=== PATIENT | male | born 1980 | race Caucasian/White ===

== ENCOUNTER → 2017-03-04 | Outpatient (CLI) | payer OTHER ==
[~2017-03-04] MED LIST: AMOX875T PO; CZR50 PO; LOSA1TAB PO; OXYC1TAB3 PO; RANI300C PO; TERB250T51 PO; [UNRECOGNIZED DRUG - CODE] MT
== END | disposition home or self-care (01) ==
LOC: C.PATHSPEC 17:43
PROVIDERS: ATTEND Plastic Surgery
DX: D22.61 Melanocytic nevi of right upper limb, including shoulder (principal)

== ENCOUNTER 2017-06-24 16:27 | Emergency (ER) | payer BC, OTHER ==
[~2017-06-24] VITALS: Ht 177.8 cm; Wt 112.7 kg
[~2017-06-24 16:27] MED LIST changes: -AMOX875T PO; -CZR50 PO; -OXYC1TAB3 PO; -RANI300C PO
[2017-06-24 16:29] VITALS: TEMP 36.7; Ht 177.8 cm; Wt 112.7 kg
[2017-06-24] MEDS ORDERED: SODIUM CHLORIDE 0.9% 1000ML 1,000 ML IV STA (16:40)
[2017-06-24] MEDS ORDERED: PROMETHAZINE HCL INJ 12.5 MG in SODIUM CHLORIDE 0.9% 50ML 50 ML IV STA (16:40)
[2017-06-24] MEDS ORDERED: MoRPHine SULFATE 4 MG/ML 1 ML CARP\\VIAL IV PRN (16:45)
[2017-06-24] MEDS ORDERED: CZR50 PO (16:55)
[2017-06-24] MEDS ORDERED: RANI300C PO (16:55)
[2017-06-24] MEDS ORDERED: OPTIRAY 320 IV PRN (17:00)
--- NOTE | 2017-06-24 17:10 | DIAGNOSTIC IMAGING REPORT ---
SINGLE VIEW CHEST CLINICAL HISTORY: Generalized abdominal pain. FINDINGS: An AP, portable, upright chest radiograph is compared to study dated 04/23/2012. The examination is degraded by portable technique and patient rotation. The heart is top normal for projection. The mediastinal contour is within normal limits. An accessory azygous fissure is incidentally noted. Linear atelectasis is seen in the left lower lung. The lungs and pleural spaces are otherwise clear. No pneumothorax is seen. The bony thorax is grossly intact. IMPRESSION: No acute cardiopulmonary abnormality. Electronically signed by: Alonzo Perez M.D. 06/24/2017 5:08 PM Dictated Date/Time: 06/24/2017 5:07 PM
[2017-06-24 17:17] LABS: BASO % 0.5 %; BASO ABS # 0.04 K/uL (0-0.2); COMPLETE YES; EOS % 2.4 %; HEMATOCRIT 39.9 % (42-52); IG% 0.4 %; LYMPH % 27.7 %; MEAN CELL VOLUME 89.3 fL (80-100); MEAN CORPUSCULAR HGB CONC 35.8 g/dl (32-36); MEAN PLATELET VOLUME 10.7 fL (7.4-10.4); MONO % 7.7 %; NEUT % 61.3 %; PLATELET COUNT 182 K/uL (130-400); RED BLOOD COUNT 4.47 M/uL (4.7-6.1); WHITE BLOOD COUNT 8.31 K/uL (4.8-10.8)
[2017-06-24 17:24] LABS: ISTAT HEMOGLOBIN 13.9 g/dl (14.0-18.0); ISTAT IONIZED CALCIUM 1.17 mmol/l (1.12-1.32)
[2017-06-24 17:35] LABS: INR 0.9 (0.9-1.1)
[2017-06-24 17:41] LABS: BUN/CREATININE RATIO 10.8 (10-20); CALCIUM 8.7 mg/dl (8.5-10.1); CREATININE 1.1 mg/dl (0.60-1.40)
[2017-06-24 17:45] LABS: POTASSIUM 3.7 mmol/L (3.5-5.1)
--- NOTE | 2017-06-24 17:48 | DIAGNOSTIC IMAGING REPORT ---
CT ANGIOGRAM OF THE BRAIN COMBO CLINICAL HISTORY: Headache. COMPARISON STUDY: No priors. TECHNIQUE: Unenhanced axial CT scan of the brain is performed. Subsequently, following the IV administration of 118 cc of Optiray 320, CT angiogram of the brain was performed from the skull base to the vertex. Images are reviewed in the axial, sagittal, and coronal planes. 3-D MIPS images are created and assessed. IV contrast was administered without complication. A dose lowering technique was utilized adhering to the principles of ALARA. CT DOSE: 756.37 mGy.cm FINDINGS: Brain parenchyma: The brain parenchyma is normal in appearance. There is no hemorrhage, mass effect, or evidence of acute territorial ischemia by CT criteria. There is no evidence of enhancing mass lesion on the angiogram phase images. No extra-axial fluid collection is seen. Brown-white matter differentiation is preserved. Ventricles, sulci, and cisterns: Normal in configuration. CT angiogram of the brain: There is origin of the posterior cerebral arteries. The internal carotid arteries are widely patent, as are the anterior and middle cerebral arteries. The vertebrobasilar system and posterior cerebral arteries are widely patent. The basilar artery is diminutive. The vertebral arteries are codominant. There is no aneurysm, high-grade stenosis, or focal vessel cutoff identified throughout the intracranial circulation. Dural sinuses: Clear as visualized. Orbits: The bony orbits are intact. The orbital contents are normal as visualized. Sinuses and mastoids: Mucosal thickening is seen in the left frontal, left maxillary, and the ethmoid sinuses.. The mastoid air cells are well pneumatized. Calvarium: Unremarkable. IMPRESSION: 1. No acute intracranial abnormality. 2. Unremarkable CT angiogram of the brain. Electronically signed by: Alonzo Perez M.D. 06/24/2017 5:46 PM Dictated Date/Time: 06/24/2017 5:42 PM
[2017-06-24] MEDS ORDERED: AMOX875T PO (18:03)
[2017-06-24] MEDS ORDERED: OXYC1TAB3 PO (18:03)
--- NOTE | 2017-06-24 18:11 | EMERGENCY ROOM VISIT NOTE ---
History Report prepared by Hectoribray: Dakota Burnett Under the Supervision of: Dr. Simba Aguilar D.O. First contact with patient: 16:33 Chief Complaint: HEADACHE Stated Complaint: HEADACHE, BLOOD VESSEL BROKE IN EYE LAST WK,NAUSEA History of Present Illness The patient is a 37 year old male who presents to the Emergency Room with complaints of a persistent headache beginning two days ago. The patient states that he was free diving in [place] last week, and states that he developed his pain following this. He estimates that he was diving about 25 feet deep. He states that he developed a nosebleed and bleeding in his eye after emerging from the water on one of his final dives. The patient notes that he returned home from [place] by plane two days ago. He also complains of nausea. He denies any weakness, SOB, neck pain, or vomiting. The patient rates his current pain as an 8/10 in severity. Source of History: patient Onset: Two days ago Position: head Symptom Intensity: 8/10 Timing: other (persistent) Associated Symptoms: + nausea, No neck pain, No SOB, No vomiting, No weakness Review of Systems See HPI for pertinent positives & negatives. A total of 10 systems reviewed and were otherwise negative. Past Medical & Surgical Medical Problems: (1) HTN (hypertension) Family History No pertinent family history Social History Smoking Status: Never Smoker Marital Status: Housing Status: lives with family Occupation Status: employed Current/Historical Medications Scheduled Amoxicillin & Pot Clavulanate (Augmentin 875-125 mg), 875 MG PO BID Losartan Potassium (Losartan Potassium), 50 MG PO QPM Ranitidine Hcl (Ranitidine Hcl), 300 MG PO QPM Scheduled PRN Oxycodone Immediate Rel Tab (Roxicodone Ir), 1-2 TAB PO Q4H PRN for Severe Pain Allergies Coded Allergies: Cat Dander (Verified Allergy, Unknown, watering eyes, 06/24/17) Physical Exam Vital Signs Date Time Temp Pulse Resp B/P (MAP) Pulse Ox O2 Delivery O2 Flow Rate FiO2 06/24/17 18:30 63 18 151/80 97 Room Air 06/24/17 16:29 36.7 75 20 202/94 97 Room Air Physical Exam GENERAL: Patient is awake, alert, and in no acute distress. Patient is resting comfortably and showing no signs of anxiety EYES: The pupils are round and reactive. Tenderness over the left superior periorbital ridge. Sub-conjunctival hemorrhage noted on the left inner conjunctiva. EARS, NOSE, MOUTH AND THROAT: The nose is without any evidence of any deformity. Mucous membranes are moist tongue is midline NECK: The neck is nontender and supple. RESPIRATORY: Normal respiratory effort is noted there is no evidence of wheezing rhonchi or rales CARDIOVASCULAR: Regular rate and rhythm noted there no murmurs rubs or gallops normal S1 normal S2 GASTROINTESTINAL: The abdomen is soft. Bowel sounds are present in all quadrants. Abdomen is nontender MUSCULOSKELETAL/EXTREMITIES: There is no evidence of gross deformity full range of motion is noted in the hips and shoulders SKIN: There is no obvious evidence of any rash. There are no petechiae, pallor or cyanosis noted. NEUROLOGIC: Patient is awake alert and oriented x3 strength is symmetric patellar reflexes are 2+ bilaterally Medical Decision & Procedures ER Provider Diagnostic Interpretation: Radiology results as stated below per my review and radiologist interpretation: CT ANGIOGRAM OF THE BRAIN COMBO FINDINGS: Brain parenchyma: The brain parenchyma is normal in appearance. There is no hemorrhage, mass effect, or evidence of acute territorial ischemia by CT criteria. There is no evidence of enhancing mass lesion on the angiogram phase images. No extra-axial fluid collection is seen. Brown-white matter differentiation is preserved. Ventricles, sulci, and cisterns: Normal in configuration. CT angiogram of the brain: There is origin of the posterior cerebral arteries. The internal carotid arteries are widely patent, as are the anterior and middle cerebral arteries. The vertebrobasilar system and posterior cerebral arteries are widely patent. The basilar artery is diminutive. The vertebral arteries are codominant. There is no aneurysm, high-grade stenosis, or focal vessel cutoff identified throughout the intracranial circulation. Dural sinuses: Clear as visualized. Orbits: The bony orbits are intact. The orbital contents are normal as visualized. Sinuses and mastoids: Mucosal thickening is seen in the left frontal, left maxillary, and the ethmoid sinuses.. The mastoid air cells are well pneumatized. Calvarium: Unremarkable. IMPRESSION: 1. No acute intracranial abnormality. 2. Unremarkable CT angiogram of the brain. Electronically signed by: Alonzo Perez M.D. SINGLE VIEW CHEST FINDINGS: An AP, portable, upright chest radiograph is compared to study dated 04/23/2012. The examination is degraded by portable technique and patient rotation. The heart is top normal for projection. The mediastinal contour is within normal limits. An accessory azygous fissure is incidentally noted. Linear atelectasis is seen in the left lower lung. The lungs and pleural spaces are otherwise clear. No pneumothorax is seen. The bony thorax is grossly intact. IMPRESSION: No acute cardiopulmonary abnormality. Electronically signed by: Alonzo Perez M.D. Laboratory Results 06/24/17 17:04 Red Blood Count 4.47, Mean Corpuscular Volume 89.3, Mean Corpuscular Hemoglobin 32.0, Mean Corpuscular Hemoglobin Concent 35.8, Mean Platelet Volume 10.7, Neutrophils (%) (Auto) 61.3, Lymphocytes (%) (Auto) 27.7, Monocytes (%) (Auto) 7.7, Eosinophils (%) (Auto) 2.4, Basophils (%) (Auto) 0.5, Neutrophils # (Auto) 5.10, Lymphocytes # (Auto) 2.30, Monocytes # (Auto) 0.64, Eosinophils # (Auto) 0.20, Basophils # (Auto) 0.04 06/24/17 17:04 Test 06/24/17 17:04 06/24/17 17:11 White Blood Count 8.31 K/uL (4.8-10.8) Red Blood Count 4.47 M/uL (4.7-6.1) Hemoglobin 14.3 g/dL (14.0-18.0) Hematocrit 39.9 % (42-52) Mean Corpuscular Volume 89.3 fL (80-100) Mean Corpuscular Hemoglobin 32.0 pg (25-34) Mean Corpuscular Hemoglobin Concent 35.8 g/dl (32-36) Platelet Count 182 K/uL (130-400) Mean Platelet Volume 10.7 fL (7.4-10.4) Neutrophils (%) (Auto) 61.3 % Lymphocytes (%) (Auto) 27.7 % Monocytes (%) (Auto) 7.7 % Eosinophils (%) (Auto) 2.4 % Basophils (%) (Auto) 0.5 % Neutrophils # (Auto) 5.10 K/uL (1.4-6.5) Lymphocytes # (Auto) 2.30 K/uL (1.2-3.4) Monocytes # (Auto) 0.64 K/uL (0.11-0.59) Eosinophils # (Auto) 0.20 K/uL (0-0.5) Basophils # (Auto) 0.04 K/uL (0-0.2) RDW Standard Deviation 41.9 fL (36.4-46.3) RDW Coefficient of Variation 13.0 % (11.5-14.5) Immature Granulocyte % (Auto) 0.4 % Immature Granulocyte # (Auto) 0.03 K/uL (0.00-0.02) Prothrombin Time 10.0 SECONDS (9.0-12.0) Prothromb Time International Ratio 0.9 (0.9-1.1) Activated Partial Thromboplast Time 26.0 SECONDS (21.0-31.0) Partial Thromboplastin Ratio 1.0 Est Creatinine Clear Calc Drug Dose 114.5 ml/min Estimated GFR () 98.2 Estimated GFR (Non- 84.7 BUN/Creatinine Ratio 10.8 (10-20) Calcium Level 8.7 mg/dl (8.5-10.1) Total Bilirubin 0.2 mg/dl (0.2-1) Direct Bilirubin 0.1 mg/dl (0-0.2) Aspartate Amino Transf (AST/SGOT) 20 U/L (15-37) Alanine Aminotransferase (ALT/SGPT) 28 U/L (12-78) Alkaline Phosphatase 76 U/L (45-117) Total Protein 7.0 gm/dl (6.4-8.2) Albumin 3.8 gm/dl (3.4-5.0) Bedside Hemoglobin 13.9 g/dl (14.0-18.0) Bedside Hematocrit 41 % (42-52) Bedside Sodium 142 mEq/L (135-144) Bedside Potassium 3.7 mEq/L (3.3-5.0) Bedside Chloride 107 mEq/L (101-112) Bedside Total CO2 24 mEq/l (24-31) Anion Gap 16.0 mmol/L (16-25) Bedside Blood Urea Nitrogen 13 mg/dl (7-18) Bedside Creatinine 1.0 mg/dl (0.6-1.3) Bedside Glucose (other) 117 mg/dl (70-99) Bedside Ionized Calcium (Camelia) 1.17 mmol/l (1.12-1.32) Laboratory results per my review. Medications Administered Medications (Trade) Dose Ordered Sig/Ernesto Route Start Time Stop Time Status Last Admin Dose Admin Sodium Chloride 1,000 ml @ 999 mls/hr Q1H1M STAT IV 06/24/17 16:40 06/24/17 17:40 DC 06/24/17 17:23 999 MLS/HR Morphine Sulfate (MoRPHine SULFATE INJ) 4 mg Q15M PRN IV 06/24/17 16:45 06/24/17 18:57 DC 06/24/17 17:23 4 MG Promethazine HCl 12.5 mg/Sodium Chloride 50.5 ml @ 204 mls/hr NOW STAT IV 06/24/17 16:40 06/24/17 16:54 DC 06/24/17 17:23 204 MLS/HR ED Course 1637: The patient was evaluated in room A11B. A complete history and physical examination were performed. 1640: Ordered Promethazine HCl 12.5/Sodium Chloride 50.5 mL @ 204 mL/hr IV, NSS 1000 mL @ 999 mL/hr IV, Morphine Sulfate 4 mg IV. 1806: Upon reevaluation, the patient is resting comfortably. I discussed the results and treatment plan with him. He verbalized agreement of the treatment plan. The patient was discharged home. Medical Decision Differential diagnosis: Etiologies such as migraine headache, meningitis, sinusitis, CO exposure, ICH, SAH, infection, tumor, headache, sinus thrombosis, arterial dissection, as well as others were entertained. The patient is a 37-year-old male who presented to the emergency department for an evaluation of left-sided headache. The patient traveling recently and was diving last week. The patient has a subconjunctival hemorrhage on the left. The patient appears to have tenderness over the left supraorbital ridge. The patient did not have any focal neurologic deficits. He had no carotid tenderness. I discussed the patient's laboratory radiographic studies with him. He was treated with pain medication in the emergency department. At this time I feel the patient's condition is likely consistent with sinusitis which could be related to his traveling or the diving. He was encouraged to continue all medications as prescribed and rest. He was also encouraged to follow up with primary care physician as it is possible but return to the emergency department immediately if symptoms change worsen or the need arises. Impression Primary Impression: Sinusitis Additional Impression: Headache Scribe Attestation The scribe's documentation has been prepared under my direction and personally reviewed by me in its entirety. I confirm that the note above accurately reflects all work, treatment, procedures, and medical decision making performed by me. Departure Information Dispostion Home / Self-Care Prescriptions Oxycodone Immediate Rel Tab (ROXICODONE IR) 5 Mg Tab 1-2 TAB PO Q4H Y for Severe Pain, #24 TAB Prov: Simba Aguilar, DO 06/24/17 Amoxicillin & Pot Clavulanate (Augmentin 875-125 mg) 1 Tab Tab 875 MG PO BID, #20 TAB Prov: Simba Aguilar, DO 06/24/17 Referrals No Doctor, Assigned (PCP) Forms HOME CARE DOCUMENTATION FORM, IMPORTANT VISIT INFORMATION Patient Instructions My [facility], Sinusitis Acute Additional Instructions Continue using Motrin and Tylenol as directed for pain. I would recommend over- the-counter nasal steroid spray such as Flonase as directed for decongestion. Call your family to schedule a follow-up appointment. Problem Qualifiers Primary Impression: Sinusitis Sinusitis location: unspecified location Chronicity: acute Recurrence: not specified as recurrent Qualified Codes: J01.90 - Acute sinusitis, unspecified
[2017-06-24 18:30] VITALS: BP 151/80; PULSE 63; O2SAT 97
[2017-06-25] MEDS ORDERED: OXYC1TAB3 PO (20:44)
[2017-06-25] MEDS ORDERED: AMOX875T PO (20:44)
== END 2017-06-24 18:38 | disposition home or self-care (01) ==
LOC: C.EDB 16:28 → C.EDA 18:38
DX: J32.9 Chronic sinusitis, unspecified (principal); I10 Essential (primary) hypertension; Z79.899 Other long term (current) drug therapy

== ENCOUNTER 2017-06-25 20:04 | Emergency (ER) | payer BC, OTHER ==
[~2017-06-25] VITALS: Ht 154.9 cm; Wt 113.9 kg
[~2017-06-25 20:04] MED LIST changes: +AMOX875T PO; +CZR50 PO; -LOSA1TAB PO; +OXYC1TAB3 PO; +RANI300C PO; -TERB250T51 PO; -[UNRECOGNIZED DRUG - CODE] MT
[2017-06-25 20:15] VITALS: TEMP 36.7; Ht 154.9 cm; Wt 113.9 kg
[2017-06-25] MEDS ORDERED: AMOX875T PO (20:44)
[2017-06-25] MEDS ORDERED: OXYC1TAB3 PO (20:44)
[2017-06-25] MEDS ORDERED: SODIUM CHLORIDE 0.9% 1000ML 1,000 ML IV STA (21:13)
[2017-06-25] MEDS ORDERED: KETOROLAC TROMETHAMINE 30 MG/ML VIAL IV STA (21:13)
[2017-06-25] MEDS ORDERED: PROMETHAZINE HCL INJ 12.5 MG in SODIUM CHLORIDE 0.9% 50ML 50 ML IV STA (21:13)
[2017-06-25] MEDS ORDERED: MoRPHine SULFATE 4 MG/ML 1 ML CARP\\VIAL IV PRN (21:15)
--- NOTE | 2017-06-25 21:28 | EMERGENCY ROOM VISIT NOTE ---
History Report prepared by Robert: Liudmila Mendenhall Under the Supervision of: Dr. Simba Aguilar D.O. First contact with patient: 21:08 Chief Complaint: HEADACHE Stated Complaint: HEADACHE,NAUSEA History of Present Illness The patient is a 37 year old male who presents to the Emergency Room with complaints of a worsened headache that began several days ago. He currently rates his discomfort as a 10/10 in severity. The patient states that he was evaluated in the emergency department yesterday and diagnosed with a sinus infection. Per records the patient was diving in [place] recently and presented with a headache and pain over his left eye yesterday. He states that he tried taking the prescribed antibiotics and pain medications, but denies any relief of his symptoms. The patient states that his symptoms are lessened when lying flat. He reports worsened pain today than yesterday, but states that it is in the same area. The patient states that he last took his pain medication around 1630 without relief. He additionally reports that he has used Flonase without relief of his symptoms. The patient additionally reports nausea. He states that he had some nasal drainage while in the shower today. The patient states that he tried getting in to see his PCP today and an ENT, but was unsuccessful. 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 The patient denies any fever, neck stiffness or vomiting. Source of History: patient Onset: several days ago Position: head Symptom Intensity: 10/10 Timing: worsening Modifying Factors (Relieving): other (lying flat) Associated Symptoms: + nausea, No fevers, No vomiting Note: Associated Symptoms: nasal drainage Review of Systems See HPI for pertinent positives & negatives. A total of 10 systems reviewed and were otherwise negative. Past Medical & Surgical Medical Problems: (1) HTN (hypertension) Family History No pertinent family history Social History Smoking Status: Never Smoker Marital Status: Housing Status: lives with family Occupation Status: employed Current/Historical Medications Scheduled Amoxicillin & Pot Clavulanate (Augmentin 875-125 mg), 1 TAB PO BID Losartan Potassium (Losartan Potassium), 50 MG PO QPM Ranitidine Hcl (Ranitidine Hcl), 300 MG PO QPM Scheduled PRN Oxycodone Immediate Rel Tab (Roxicodone Ir), 5-10 MG PO Q4H PRN for Severe Pain Allergies Coded Allergies: JOSE FRANCISCO Inhibitors (Verified Allergy, Intermediate, COUGH, 06/25/17) Cat Dander (Verified Allergy, Unknown, watering eyes, 06/25/17) Physical Exam Vital Signs Date Time Temp Pulse Resp B/P (MAP) Pulse Ox O2 Delivery O2 Flow Rate FiO2 06/25/17 23:17 06/25/17 23:14 57 18 123/65 96 Room Air 06/25/17 21:43 52 12 140/83 98 Room Air 06/25/17 20:15 36.7 60 16 168/99 97 Room Air Physical Exam GENERAL: Patient is awake, alert, and in no acute distress. Patient is resting comfortably and showing no signs of anxiety EYES: The conjunctivae are clear. The pupils are round and reactive. EARS, NOSE, MOUTH AND THROAT: Tenderness over the left supraorbital ridge as well as the left maxillary sinus. Naris was patent. No drainage noted. Mucous membranes moist. NECK: The neck is nontender and supple. RESPIRATORY: Normal respiratory effort is noted there is no evidence of wheezing rhonchi or rales CARDIOVASCULAR: Regular rate and rhythm noted there no murmurs rubs or gallops normal S1 normal S2 GASTROINTESTINAL: The abdomen is soft. Bowel sounds are present in all quadrants. Abdomen is nontender MUSCULOSKELETAL/EXTREMITIES: There is no evidence of gross deformity full range of motion is noted in the hips and shoulders SKIN: There is no obvious evidence of any rash. There are no petechiae, pallor or cyanosis noted. NEUROLOGIC: Patient is awake alert and oriented x3 strength is symmetric patellar reflexes are 2+ bilaterally Medical Decision & Procedures ER Provider Diagnostic Interpretation: X-ray results as stated below per interpretation by me and the radiologist. SINUSES-MAXILLOFACIAL W/O CT DOSE: 613.79 mGy.cm HISTORY: Pain left facial pain, sinusitis yesterday TECHNIQUE: Multiaxial CT images of the paranasal sinuses were performed and reformatted in the coronal plane without the use of contrast. A dose lowering technique was utilized adhering to the principles of ALARA. COMPARISON: None. FINDINGS: Partial opacification left frontal sinuses. Rather significant mucosal thickening of the ethmoid sinuses bilaterally. Mild mucosal thickening left maxillary sinus. There is soft tissue occlusion left ostiomeatal unit. The right ostomy unit is patent. Mild mucosal thickening of the sinuses. No evidence for a bony destructive process. Mild hyperplastic changes the nasal turbinates. The nasal septum is midline. The orbits are unremarkable. IMPRESSION: 1. Moderate mucosal thickening of the ethmoid and left frontal, maxillary, and sphenoid sinuses. 2. Soft tissue occlusion left ostiomeatal unit. The above report was generated using voice recognition software. It may contain grammatical, syntax or spelling errors. Electronically signed by: Alexis Patino M.D. 06/25/2017 10:14 PM Dictated Date/Time: 06/25/2017 10:12 PM Laboratory Results 06/25/17 21:26 Red Blood Count 4.26, Mean Corpuscular Volume 90.6, Mean Corpuscular Hemoglobin 31.2, Mean Corpuscular Hemoglobin Concent 34.5, Mean Platelet Volume 10.8, Neutrophils (%) (Auto) 55.8, Lymphocytes (%) (Auto) 32.3, Monocytes (%) (Auto) 7.8, Eosinophils (%) (Auto) 3.1, Basophils (%) (Auto) 0.6, Neutrophils # (Auto) 4.67, Lymphocytes # (Auto) 2.70, Monocytes # (Auto) 0.65, Eosinophils # (Auto) 0.26, Basophils # (Auto) 0.05 06/25/17 21:26 Test 06/25/17 21:26 White Blood Count 8.36 K/uL (4.8-10.8) Red Blood Count 4.26 M/uL (4.7-6.1) Hemoglobin 13.3 g/dL (14.0-18.0) Hematocrit 38.6 % (42-52) Mean Corpuscular Volume 90.6 fL (80-100) Mean Corpuscular Hemoglobin 31.2 pg (25-34) Mean Corpuscular Hemoglobin Concent 34.5 g/dl (32-36) Platelet Count 165 K/uL (130-400) Mean Platelet Volume 10.8 fL (7.4-10.4) Neutrophils (%) (Auto) 55.8 % Lymphocytes (%) (Auto) 32.3 % Monocytes (%) (Auto) 7.8 % Eosinophils (%) (Auto) 3.1 % Basophils (%) (Auto) 0.6 % Neutrophils # (Auto) 4.67 K/uL (1.4-6.5) Lymphocytes # (Auto) 2.70 K/uL (1.2-3.4) Monocytes # (Auto) 0.65 K/uL (0.11-0.59) Eosinophils # (Auto) 0.26 K/uL (0-0.5) Basophils # (Auto) 0.05 K/uL (0-0.2) RDW Standard Deviation 43.4 fL (36.4-46.3) RDW Coefficient of Variation 13.3 % (11.5-14.5) Immature Granulocyte % (Auto) 0.4 % Immature Granulocyte # (Auto) 0.03 K/uL (0.00-0.02) Prothrombin Time 10.2 SECONDS (9.0-12.0) Prothromb Time International Ratio 1.0 (0.9-1.1) Activated Partial Thromboplast Time 27.4 SECONDS (21.0-31.0) Partial Thromboplastin Ratio 1.1 Anion Gap 5.0 mmol/L (3-11) Est Creatinine Clear Calc Drug Dose 115.9 ml/min Estimated GFR () 118.7 Estimated GFR (Non- 102.4 BUN/Creatinine Ratio 9.6 (10-20) Calcium Level 8.5 mg/dl (8.5-10.1) Total Bilirubin 0.3 mg/dl (0.2-1) Direct Bilirubin < 0.1 mg/dl (0-0.2) Aspartate Amino Transf (AST/SGOT) 15 U/L (15-37) Alanine Aminotransferase (ALT/SGPT) 23 U/L (12-78) Alkaline Phosphatase 59 U/L (45-117) Total Protein 6.6 gm/dl (6.4-8.2) Albumin 3.5 gm/dl (3.4-5.0) Laboratory results per my review. Medications Administered Medications (Trade) Dose Ordered Sig/Ernesto Route Start Time Stop Time Status Last Admin Dose Admin Ketorolac Tromethamine (Toradol Inj) 30 mg NOW STAT IV 06/25/17 21:13 06/25/17 21:15 DC 06/25/17 21:47 30 MG Sodium Chloride 1,000 ml @ 999 mls/hr Q1H1M STAT IV 06/25/17 21:13 06/25/17 22:13 DC 06/25/17 21:47 999 MLS/HR Promethazine HCl 12.5 mg/Sodium Chloride 50.5 ml @ 204 mls/hr NOW STAT IV 06/25/17 21:13 06/25/17 21:27 DC 06/25/17 21:46 204 MLS/HR Morphine Sulfate (MoRPHine SULFATE INJ) 4 mg Q15M PRN IV 06/25/17 21:15 06/25/17 23:28 DC 06/25/17 21:47 4 MG ED Course 2108: The patient was evaluated in room A11B. A complete history and physical examination were performed. 2112: Ordered Promethazine HCl 12.5 mg/Sodium Chloride 50.5 ml @ 204 mls/hr IV, Sodium Chloride 1000 ml @ 999 mls/hr IV, Toradol Inj 30 mg IV. 2114: Ordered Morphine Sulfate 4 mg IV. 2238: I reevaluated the patient and he is resting. I discussed all the exam findings with him and I discussed the treatment plan. ENT will be consulted. 2253: I discussed the patients case with Dr. Maldonado, ENT. He states that he is going to the OR at this time and does not have time to see him right now. 2258: I reevaluated the patient and he is resting. I discussed the treatment plan with him and he verbalized complete understanding and agreement. He is ready to go home. Medical Decision Differential diagnosis: Etiologies such as migraine headache, meningitis, sinusitis, CO exposure, ICH, SAH, infection, tumor, headache, sinus thrombosis, arterial dissection, as well as others were entertained. Nursing notes reviewed. Patient's previous electronic medical records reviewed. The patient is a 37-year-old male who presented to the emergency department for evaluation of left-sided headache. The patient was seen recently for similar complaints. He was diving in [place] last week. At this time the patient's condition appears to be consistent with sinusitis but he may have some blockage of the ostiomeatal complex which could be prolonging and worsening the sinusitis. The patient was treated with IV fluids IV pain medicine and IV antiemetics. On subsequent reevaluation he was feeling much better. I discussed his case with the on-call ear nose and throat physician. The patient was encouraged to either try to follow-up with the on-call ear nose and throat physician or his primary your nose and throat physician. He was also encouraged to continue all medications as prescribed and return to the emergency apartment immediately if symptoms change worsen or the need arises. Medication Reconcilliation Current Medication List: was personally reviewed by me Blood Pressure Screening Patient's blood pressure: Elevated blood pressure Blood pressure disposition: Elevated BP felt to be situational, Did not require urgent referral Consults Time Called: 2244 Consulting Physician: Dr. Maldonado ENT Returned Call: [phone] I discussed the patients case with Dr. Maldonado ENT. He states that he is going to the OR at this time and does not have time to see him right now. Impression Primary Impression: Sinusitis Additional Impression: Headache Scribe Attestation The scribe's documentation has been prepared under my direction and personally reviewed by me in its entirety. I confirm that the note above accurately reflects all work, treatment, procedures, and medical decision making performed by me. Departure Information Dispostion Home / Self-Care Referrals Jorge Luis Dowd M.D. (PCP) Dale Patrick D.O. Forms HOME CARE DOCUMENTATION FORM, IMPORTANT VISIT INFORMATION, Work Instructions Patient Instructions [facility], Sinusitis Acute Additional Instructions Follow-up with ear nose and throat physician as soon as possible. Rest and avoid any strenuous activity. Continue all medications as prescribed. Problem Qualifiers Primary Impression: Sinusitis Sinusitis location: unspecified location Chronicity: acute Recurrence: not specified as recurrent Qualified Codes: J01.90 - Acute sinusitis, unspecified Additional Impression: Headache Headache type: unspecified Headache chronicity pattern: acute headache Intractability: not intractable Qualified Codes: R51 - Headache
[2017-06-25 21:38] LABS: BASO % 0.6 %; BASO ABS # 0.05 K/uL (0-0.2); COMPLETE YES; EOS % 3.1 %; HEMATOCRIT 38.6 % (42-52); IG% 0.4 %; LYMPH % 32.3 %; MEAN CELL VOLUME 90.6 fL (80-100); MEAN CORPUSCULAR HEMOGLOBIN 31.2 pg (25-34); MEAN CORPUSCULAR HGB CONC 34.5 g/dl (32-36); MEAN PLATELET VOLUME 10.8 fL (7.4-10.4); MONO % 7.8 %; NEUT % 55.8 %; PLATELET COUNT 165 K/uL (130-400); RED BLOOD COUNT 4.26 M/uL (4.7-6.1); WHITE BLOOD COUNT 8.36 K/uL (4.8-10.8)
[2017-06-25 21:47] LABS: PARTIAL THROMBOPLASTIN RATIO 1.1; PROTHROMBIN TIME (PATIENT) 10.2 SECONDS (9.0-12.0)
[2017-06-25 21:55] LABS: ALT/SGPT 23 U/L (12-78); BLOOD UREA NITROGEN 9 mg/dl (7-18); BUN/CREATININE RATIO 9.6 (10-20); CALCIUM 8.5 mg/dl (8.5-10.1); CARBON DIOXIDE 29 mmol/L (21-32); CHLORIDE 107 mmol/L (98-107); CREATININE 0.94 mg/dl (0.60-1.40); GLUCOSE 93 mg/dl (70-99); POTASSIUM 3.6 mmol/L (3.5-5.1); SODIUM 141 mmol/L (136-145)
[2017-06-25 21:58] LABS: ALKALINE PHOSPHATASE 59 U/L (45-117); AST/SGOT 15 U/L (15-37)
--- NOTE | 2017-06-25 22:16 | DIAGNOSTIC IMAGING REPORT ---
SINUSES-MAXILLOFACIAL W/O CT DOSE: 613.79 mGy.cm HISTORY: Pain left facial pain, sinusitis yesterday TECHNIQUE: Multiaxial CT images of the paranasal sinuses were performed and reformatted in the coronal plane without the use of contrast. A dose lowering technique was utilized adhering to the principles of ALARA. COMPARISON: None. FINDINGS: Partial opacification left frontal sinuses. Rather significant mucosal thickening of the ethmoid sinuses bilaterally. Mild mucosal thickening left maxillary sinus. There is soft tissue occlusion left ostiomeatal unit. The right ostomy unit is patent. Mild mucosal thickening of the sinuses. No evidence for a bony destructive process. Mild hyperplastic changes the nasal turbinates. The nasal septum is midline. The orbits are unremarkable. IMPRESSION: 1. Moderate mucosal thickening of the ethmoid and left frontal, maxillary, and sphenoid sinuses. 2. Soft tissue occlusion left ostiomeatal unit. The above report was generated using voice recognition software. It may contain grammatical, syntax or spelling errors. Electronically signed by: Alexis Patino M.D. 06/25/2017 10:14 PM Dictated Date/Time: 06/25/2017 10:12 PM
[2017-06-25 23:14] VITALS: BP 123/65; PULSE 57; O2SAT 96
== END 2017-06-25 23:17 | disposition home or self-care (01) ==
LOC: C.EDB 20:05 → C.EDA 23:17
DX: J01.40 Acute pansinusitis, unspecified (principal); R51 Headache; R11.0 Nausea

== ENCOUNTER 2024-12-17 23:36 | Inpatient (IN) ==
[2024-12-18] MEDS: ONDANSETRON INJ 2 MG/ML 2 ML VIAL IV STA (00:36)
[2024-12-18] MEDS: HYDROmorphone INJ 1 MG/ML SYRINGE IV STA ×3 (00:38→03:48)
[2024-12-18] MEDS: LOPERAMIDE HCL 2 MG CAP PO STA (00:40)
[2024-12-18] MEDS: KETOROLAC 30 MG/ML VIAL IV ONE ×2 (00:41→05:04)
[2024-12-18 00:57] LABS: Basophils % (auto) 0.9 %; Eosinophils # (auto) 0.17 K/uL (0.00-0.50); Eosinophils % (auto) 1.6 %; Hematocrit (blood only) 49.5 % (42.0-52.0); Immature Granulocytes # (auto) 0.04 K/uL (0.01-0.20); Immature Granulocytes % (auto) 0.4 %; Lymphocytes # (auto) 4.07 K/uL (1.20-3.40); Lymphocytes % (auto) 38.1 %; Mean Corpuscular Hemoglobin 32.1 pg (25.0-34.0); Mean Corpuscular Hgb Conc 36.4 g/dL (32.0-36.0); Mean Corpuscular Volume 88.4 fL (80.0-100.0); Mean Platelet Volume 10.8 fL (9.4-12.4); Monocytes # (auto) 1.21 K/uL (0.11-0.59); Monocytes % (auto) 11.3 %; Neutrophils # (auto) 5.09 K/uL (1.40-6.50); Neutrophils % (auto) 47.7 %; Platelet Count 252 K/uL (130-400); RDW Coefficient of Variation 12.4 % (11.5-14.5); RDW Standard Deviation 40.2 fL (36.4-46.3); White Blood Count 10.68 K/ul (4.8-10.8)
[2024-12-18 01:04] LABS: Albumin Globulin Ratio 1.9 (0.9-2); Albumin Level 5.3 gm/dl (3.4-5.0); BUN Creatinine Ratio 17.6 (10-20); Bilirubin,Total 0.8 mg/dl (0.2-1.0); Calcium 10.3 mg/dl (8.6-10.3); Creatinine Clr Calc Pharmacy 118.2 ml/min; Globulin 2.8 gm/dl (2.5-4.0); Potassium 3.3 mmol/L (3.5-5.1); Total Protein 8.1 gm/dl (6.0-8.3)
[2024-12-18] MEDS: DEXAMETHASONE SOD INJ 4 MG/ML VIAL IV STA (01:39)
--- NOTE | 2024-12-18 03:58 | Magnetic Resonance Report ---
EXAM: MR cervical spine wo con CLINICAL HISTORY: NO HX CANCER. NECK SURG NO RECENT TRAUMA NECK PAIN X 1 DAY WITH RIGHT RADICULOPATHY. TECHNIQUE: An MRI of the cervical spine was performed without contrast. Sequences obtained include sagittal T1-weighted, T2-weighted, STIR (Short Tau Inversion Recovery), and axial T2-weighted sequences. Images were sent through PACS for diagnostic interpretation. COMPARISON: No previous studies are available for comparison. FINDINGS: Vertebral Alignment: Straightening of cervical spine noted possibly due to muscle spasm. No fracture/dislocation was noted. Vertebral Bodies and Intervertebral Discs: Normal vertebral body height and alignment. Cervical spondylosis is evident by marginal osteophytic lipping of the opposing vertebral endplates and dehydration of all cervical discs. [id number] analysis: C2-C3: There is a diffuse posterior disc bulge/osteophyte complex measures 3.2 mm causing bilateral moderate to marked neural foraminal stenosis and copressing the anterior thecal sac. No significant spinal canal stenosis was noted. C3-C4: There is a diffuse posterior disc bulge/osteophytic complex measuring 3.5 mm compressing the anterior thecal sac and causing bilateral moderate to marked neural foraminal stenosis with no significant spinal canal stenosis noted. C4-C5: There is right posterolateral disc extrusion with caudal migration/osteophytic complex measures 5 mm indenting the anterior thecal sac and causing marked right and moderate left neural foraminal stenosis with no significant spinal canal stenosis noted. C5-C6: There is posterior disc herniation/osteophytic complex measuring 5.6 mm compressing the anterior thecal sac and causing severe spinal canal stenosis, and marked bilateral neural foraminal stenosis. C6-C7: There is a diffuse posterior disc bulge indenting the anterior thecal sac and causing mild to moderate lateral recess stenosis , resulting in indentation on exiting nerve roots. It measures about 1.6 mm. No significant spinal canal stenosis was noted. C7-T1: There is no significant disc pathology. Normal morphology of the ligamentum flava. No arthropathy of the uncovertebral and zygapophyseal joints. No significant spinal canal stenosis. Spinal Cord and Nerve Roots: The spinal cord demonstrates normal signal intensity. Soft Tissues: Paraspinal soft tissues appear normal without evidence of abnormal signal intensity or mass lesions. IMPRESSION: 1. Multilevel cervical disc bulge/osteophyte complexes with foraminal and spinal canal stenosis, more evident at C5-C6 disc as described. 2. Straightening of cervical spine. 3. Cervical spondylosis. Electronically signed by Cesar Massey 12-18-2024 03:57 AM
[2024-12-18] MEDS ORDERED: PROMETHAZINE 12.5 MG/50.5 ML BAG IV PRN (04:54)
--- NOTE | 2024-12-18 05:04 | History & Physical Report ---
Date of Service December 18, 2024 Assessment & Plan (1) Cervical radiculopathy: Plan: Right cervical radiculopathy hypertension, stable heterozygous factor V Leiden abnormality, significant family history without personal history of blood clots as per patient account prediabetes, hemoglobin A1c of 5.8 in 2022 Hypokalemia secondary to diuretic Rx past tobacco abuse OBS Admit to medical Analges[facility] Orthopedic spine consult Re: Cervical radiculopathy (ED provider already in touch with Dr. Peterson who recommends medical management for now. Lyrica trial as per discussion.) Replace potassium, hold home diuretic for now Update hemoglobin A1c DVT prophylaxis. SCDs re: possible procedure Full code Text document was generated using [employer] voice recognition software. It may contain grammatical or spelling errors. Kindly contact undersigned for clarification of any documentation item in question. History of Present Illness Chief Complaint: Worsening neck pain Primary Care Provider: Jorge Luis Dowd MD History obtained from patient and records. Medical history significant for hypertension, hyperlipidemia, GERD, mild CAMILO, heterozygous factor V Leiden abnormality, prediabetes, anxiety disorder, past tobacco abuse. Last overnight confinement 2011 under Orthopedic spine service for lumbar disc herniation status post surgery. Unremarkable postop course. Patient has had chronic neck pain for about 25 years following a football injury. Patient noted progressive worsening of neck pain over the last few days after shoveling snow at home. Some radiation to the right arm. No weakness/numbness/incontinence symptoms. No fever, no chills. No chest pain, no SOB. Intractable discomfort at the ER. Medical History as above Surgical History : Back surgery, vasectomy, hernia repair, foot surgery, hip surgery Family History : Blood clots, asthma, skin cancer, anxiety disorder, heart disease Personal/Social history : Past tobacco abuse, occasional EtOH intake, [employer] business Allergies Allergy/AdvReac Type Severity Reaction Status Date / Time JOSE FRANCISCO Inhibitors Allergy Intermediate COUGH Verified 10/12/24 13:55 lisinopril Allergy Intermediate RESPIRATORY Unverified 10/12/24 13:55 PROBLEMS, COUGH cat dander Allergy Unknown watering Verified 10/12/24 13:55 eyes Home Medications Medication Instructions Recorded Confirmed Type losartan 100 1 tab PO DAILY #30 tabs 12/02/24 12/17/24 Rx mg-hydrochlorothiazide 25 mg tablet tirzepatide (weight loss) 12.5 12.5 mg (0.5 mL) subcut Q7D #2 mL 12/03/24 12/17/24 Rx mg/0.5 mL subcutaneous pen injector Past Med/Surg History Problem List (Updated 12/18/24 @ 07:40 by Yovany Jacome MD) Cervical radiculopathy Obstructive sleep apnea Right heart enlargement HTN (hypertension) (Chronic) Ringworm (Acute) Allergic reaction (Acute) Medical History Hernia, inguinal Surgical History H/O laminectomy No pertinent past surgical history Family History Mother Hypertension Father Seizures Combined hyperlipidemia Sister Factor II deficiency Factor 5 Leiden mutation, heterozygous Other No pertinent family history Social History Smoking Status: Former smoker Tobacco Type: Cigarettes and Cigars Age Started Using Tobacco: 19; Age Quit Using Tobacco: 31; Cigarettes Per Day: occasional; Second Hand Exposure: Yes (parents smoked till 10 ); Do You Dip or Chew Tobacco: No; Hx Alcohol Use: Yes Alcohol type: beer, wine and hard liquor Alcohol type Comment: 2-3 drinks 3 days weekly. Alcohol Intake Frequency: 2-3 x/Week Hx Substance Use: No Preferred Language: Qatari Visual Impairment: No Limitations Hearing Ability: Normal Final Armature Tester Required: No Beliefs That Will Affect Care: None marital status: Current Living Situation: Spouse current occupational status: employed Other Information That Helps Us Care for You: No Feels Safe at Home: Yes Safety Concerns: Feels Safe At This Time Diet: regular Diet Comment: does not watch salt intake. fresh fruits and vegetables. caffeine: Yes (8-16 oz cup coffee) Physical Activity Frequency: 1-2 Times per Week (walks while hunting and fishing. ) Assistive Devices: Glasses Review of Systems Review of Systems: As per HPI, all other systems reviewed and negative Physical Exam Physical Exam: GENERAL: Comfortable, pleasant, obese, no respiratory distress SKIN: Normal color, warm HEENT: [place] palpebral conjunctivae, no ptosis, dry buccal mucosa NECK : Limited neck motion, right cervical tenderness CHEST : CTA, no tenderness HEART : RRR, no obvious murmurs ABDOMEN: Some distention, nontender EXTREMITIES : No LE swelling/tenderness, no other conspicuous deformities noted NEUROLOGIC : Coherent, no facial asymmetry, no other gross focality Results & Data Results & Data Vital Signs (Past 12 Hours) Vital Signs Temp Pulse Pulse Resp BP BP Pulse Ox 12/18/24 04:04 81 12/18/24 03:30 80 12 121/90 96 12/18/24 03:01 100 H 12 130/85 94 12/18/24 03:01 130/85 12/18/24 01:38 96 H 20 116/82 95 12/18/24 01:00 98 H 15 94 12/18/24 00:30 85 18 143/92 H 96 12/18/24 00:05 107 H 22 158/108 H 98 12/18/24 00:04 92 H 12/17/24 23:39 36.5 C 93 H 19 174/117 H 99 O2 Del Method 12/18/24 04:04 12/18/24 03:30 12/18/24 03:01 12/18/24 03:01 12/18/24 01:38 Room Air 12/18/24 01:00 Room Air 12/18/24 00:30 Room Air 12/18/24 00:05 Room Air 12/18/24 00:04 12/17/24 23:39 Room Air Laboratory Results Laboratory Results WBC 10.68 K/ul (4.8-10.8) 12/18/24 00:27 RBC 5.60 M/uL (4.70-6.10) 12/18/24 00:27 Hgb 18.0 g/dl (14.0-18.0) 12/18/24 00:27 Hct 49.5 % (42.0-52.0) 12/18/24 00:27 MCV 88.4 fL (80.0-100.0) 12/18/24 00:27 MCH 32.1 pg (25.0-34.0) 12/18/24 00:27 MCHC 36.4 g/dL (32.0-36.0) H 12/18/24 00:27 RDW Std Deviation 40.2 fL (36.4-46.3) 12/18/24 00:27 RDW Coeff of Leodan 12.4 % (11.5-14.5) 12/18/24 00: Plt Count 252 K/uL (130-400) 12/18/24: MPV 10.8 fL (9.4-12.4) 12/18/24 00: Immature Gran % (Auto) 0.4 % 12/18/24: Neut % (Auto) 47.7 % 12/18/24 00: Lymph % (Auto) 38.1 % 12/18/24: Duchesne % (Auto) 11.3 % 12/18/24: Eos % (Auto) 1.6 % 12/18/24: Baso % (Auto) 0.9 % 12/18/24: Neut # (Auto) 5.09 K/uL (1.40-6.50) 12/18/24 Lymph # (Auto) 4.07 K/uL (1.20-3.40) H 12/18/24 00: Duchesne # (Auto) 1.21 K/uL (0.11-0.59) H 12/18/24 00: Eos # (Auto) 0.17 K/uL (0.00-0.50) 12/18/24 00: Baso # (Auto) 0.10 K/uL (0.00-0.20) 12/18/24 00: Immature Gran # (Auto) 0.04 K/uL (0.01-0.20) 12/18/24 00 Sodium 136 mmol/L (136-145) 12/18/24 Potassium 3.3 mmol/L (3.5-5.1) L 12/18/24 Chloride 101 mmol/L (98-107) 12/18/24: Carbon Dioxide 23 mmol/L (21-32) 12/18/24 Anion Gap 12 (3-11) H 12/18/24 BUN 16 mg/dl (6-23) 12/18/24 Creatinine 0.91 mg/dl (0.6-1.4) 12/18/24 Est Cr Clr Drug Dosing 118.2 ml/min 12/18/24: eGFR 105.92 12/18/24 00:27 BUN/Creatinine Ratio 17.6 (10-20) 12/18/24 00: Glucose 124 mg/dl (70-99(Fasting)) H 12/18/24 00: Calcium 10.3 mg/dl (8.6-10.3) 12/18/24 00: Total Bilirubin 0.8 mg/dl (0.2-1.0) 12/18/24: AST 24 U/L (13-39) 12/18/24: ALT 34 U/L (7-52) 12/18/24: Alkaline Phosphatase 57 U/L (34-104) 12/18/24: Total Protein 8.1 gm/dl (6.0-8.3) 12/18/24 Albumin 5.3 gm/dl (3.4-5.0) H 12/18/24 00: Globulin 2.8 gm/dl (2.5-4.0) 12/18/24 00 Albumin/Globulin Ratio 1.9 (0.9-2) 12/18/24 00: Impressions Cervical Spine MRI 12/18/24 00:48 EXAM: MR cervical spine wo con CLINICAL HISTORY: NO HX CANCER. NECK SURG NO RECENT TRAUMA NECK PAIN X 1 DAY WITH RIGHT RADICULOPATHY. TECHNIQUE: An MRI of the cervical spine was performed without contrast. Sequences obtained include sagittal T1-weighted, T2-weighted, STIR (Short Tau Inversion Recovery), and axial T2-weighted sequences. Images were sent through PACS for diagnostic interpretation. COMPARISON: No previous studies are available for comparison. FINDINGS: Vertebral Alignment: Straightening of cervical spine noted possibly due to muscle spasm. No fracture/dislocation was noted. Vertebral Bodies and Intervertebral Discs: Normal vertebral body height and alignment. Cervical spondylosis is evident by marginal osteophytic lipping of the opposing vertebral endplates and dehydration of all cervical discs. Hnpmp-[id number] analysis: C2-C3: There is a diffuse posterior disc bulge/osteophyte complex measures 3.2 mm causing bilateral moderate to marked neural foraminal stenosis and copressing the anterior thecal sac. No significant spinal canal stenosis was noted. C3-C4: There is a diffuse posterior disc bulge/osteophytic complex measuring 3.5 mm compressing the anterior thecal sac and causing bilateral moderate to marked neural foraminal stenosis with no significant spinal canal stenosis noted. C4-C5: There is right posterolateral disc extrusion with caudal migration/osteophytic complex measures 5 mm indenting the anterior thecal sac and causing marked right and moderate left neural foraminal stenosis with no significant spinal canal stenosis noted. C5-C6: There is posterior disc herniation/osteophytic complex measuring 5.6 mm compressing the anterior thecal sac and causing severe spinal canal stenosis, and marked bilateral neural foraminal stenosis. C6-C7: There is a diffuse posterior disc bulge indenting the anterior thecal sac and causing mild to moderate lateral recess stenosis , resulting in indentation on exiting nerve roots. It measures about 1.6 mm. No significant spinal canal stenosis was noted. C7-T1: There is no significant disc pathology. Normal morphology of the ligamentum flava. No arthropathy of the uncovertebral and zygapophyseal joints. No significant spinal canal stenosis. Spinal Cord and Nerve Roots: The spinal cord demonstrates normal signal intensity. Soft Tissues: Paraspinal soft tissues appear normal without evidence of abnormal signal intensity or mass lesions. IMPRESSION: 1. Multilevel cervical disc bulge/osteophyte complexes with foraminal and spinal canal stenosis, more evident at C5-C6 disc as described. 2. Straightening of cervical spine. 3. Cervical spondylosis. Electronically signed by Cesar Massey 12-18-2024 03:57 AM
[2024-12-18 05:36] LABS: Magnesium 1.9 mg/dl (1.7-2.4)
[2024-12-18] MEDS: NSS + 20MEQ KCL 20 MEQ/1,000 ML BAG IV ONE (05:37)
[2024-12-18] MEDS: POTASSIUM CHLORIDE CRTAB 20 MEQ TABCR PO STA (05:37)
[2024-12-18] MEDS ORDERED: tiZANidine HCL 4 MG TABLET PO PRN (06:02)
[2024-12-18] MEDS: tiZANidine HCL 4 MG TABLET PO STA (06:31)
[2024-12-18] MEDS: PREGABALIN 25 MG CAP PO SCH (06:31)
[2024-12-18] MEDS: oxyCODONE HCL IR 5 MG TAB (IMMEDIATE RELEASE) PO PRN (07:25)
[2024-12-18 08:21] LABS: Estimated Average Glucose 105 mg/dl; Hemoglobin A1C 5.3 % (4.5-5.6)
[2024-12-18] MEDS: MoRPHine SULFATE 4 MG/ML 1 ML CARP\\VIAL IV PRN (09:17)
--- NOTE | 2024-12-18 09:52 | Orthopedic Consultation ---
Date of Service December 18, 2024 Assessment & Plan (1) Herniated nucleus pulposus, C5-6 right: (2) Herniated nucleus pulposus, C4-5: (3) Cervical radicular pain: (4) Cervical stenosis of spine: Plan Patient has been admitted with intractable right upper extremity pain for pain management. He is neurologically intact as far as strength and function go. I would like to start him on IV steroids, Decadron every 8 hours, increase Lyrica to 75 mg twice daily with breakthrough narcotic pain medications. Will also utilize tizanidine as needed for muscle spasms. Patient does have a large disc herniation leading to his radicular pain however I explained that this does cause some compression on the spinal cord, at this time he has no signs of cervical myelopathy. I explained that given the decreased room available for the cord even minor trauma such as car accidents falls he is higher risk than the average population for spinal cord injury given the decreased room available, he could also develop signs of myelopathy to include bowel and bladder dysfunction, balance disorder fine motor skill loss. He voiced understanding and agrees to proceed with conservative management. I discussed that we will trial steroids IV for the next 24 hours to see if we can get some control over his pain, should he begin experiencing any weakness or signs of cord compression we would revisit the discussion of anterior cervical discectomy and fusion. Based on his imaging findings I think the majority of his symptoms are coming from C5-6 as that appears to be a disc herniation that is acute, there is a C4-5 disc herniation however this seems more chronic in nature although it does create severe foraminal stenosis on the right. Discussion would be had with the patient whether or not to include both discs or just the 1 level. Other option could be evaluation by pain management to see if it would be possible to get him an epidural injection as an inpatient if his pain is not controlled. I will continue to follow along, I told him I will be in to see him tomorrow, if he has improved pain control and mobility may consider discharging home, if not we will discuss possible surgery versus epidural injections. Please avoid use of any NSAIDs given there effect on platelet function, patient's last dose of ibuprofen was Friday evening so I would prefer he be off those for 48 to 72 hours prior to any surgery if necessary. History of Present Illness Reason for Consultation: Right arm pain, disc herniation Attending Physician: Jennifer Lr MD Patient is a 44 year old male with hx of intermittent neck pain who comes through the ER last night for severe intractable right arm pain. Does not report any weakness, bowel/bladder control issues, or balance issues. Pain folows right C6 dermatomal pattern. No trauma, started after shoveling snow earlier in the week. He has been taking a muscle relaxer and ibuprofen at home. Last dose ibuprofen Friday evening before coming in to ER. MRI demonstrated C5-6 disc herniation with cord deformation and severe canal and foraminal stenosis. He was admitted for pain control by hospitalist as ER was unable to get his pain under control. Neurologically intact, right arm limited by pain. Allergies Allergy/AdvReac Type Severity Reaction Status Date / Time JOSE FRANCISCO Inhibitors Allergy Intermediate COUGH Verified 10/12/24 13:55 lisinopril Allergy Intermediate RESPIRATORY Unverified 10/12/24 13:55 PROBLEMS, COUGH cat dander Allergy Unknown watering Verified 10/12/24 13:55 eyes Home Medications Medication Instructions Recorded Confirmed Type losartan 100 1 tab PO DAILY #30 tabs 12/02/24 12/17/24 Rx mg-hydrochlorothiazide 25 mg tablet tirzepatide (weight loss) 12.5 12.5 mg (0.5 mL) subcut Q7D #2 mL 12/03/2412/17 Rx mg/0.5 mL subcutaneous pen injector Past Med/Surg History Problem List (Updated 12/18/24 @ 09:57 by Alonzo Peterson MD) Cervical stenosis of spine Cervical radicular pain Herniated nucleus pulposus, C4-5 Herniated nucleus pulposus, C5-6 right Cervical radiculopathy Obstructive sleep apnea Right heart enlargement HTN (hypertension) (Chronic) Ringworm (Acute) Allergic reaction (Acute) Medical History Hernia, inguinal Surgical History H/O laminectomy No pertinent past surgical history Family History Mother Hypertension Father Seizures Combined hyperlipidemia Sister Factor II deficiency Factor 5 Leiden mutation, heterozygous Other No pertinent family history Social History Smoking Status: Former smoker Tobacco Type: Cigarettes and Cigars Age Started Using Tobacco: 19; Age Quit Using Tobacco: 31; Cigarettes Per Day: occasional; Second Hand Exposure: Yes (parents smoked till 10 ); Do You Dip or Chew Tobacco: No; Hx Alcohol Use: Yes Alcohol type: beer, wine and hard liquor Alcohol type Comment: 2-3 drinks 3 days weekly. Alcohol Intake Frequency: 2-3 x/Week Hx Substance Use: No Preferred Language: Welsh Visual Impairment: No Limitations Hearing Ability: Normal Plate Washer Required: No Beliefs That Will Affect Care: None marital status: Current Living Situation: Spouse current occupational status: employed Other Information That Helps Us Care for You: No Feels Safe at Home: Yes Safety Concerns: Feels Safe At This Time Diet: regular Diet Comment: does not watch salt intake. fresh fruits and vegetables. caffeine: Yes (8-16 oz cup coffee) Physical Activity Frequency: 1-2 Times per Week (walks while hunting and fishing. ) Assistive Devices: Glasses Review of Systems All systems reviewed & are unremarkable except as noted in HPI & below. Physical Exam 5/5 strength bilateral deltoid, biceps, wrist extensors, FDP, intrinsics SILT C5-T1 with exception of decreased sensation right C6 dermatome Negative Tsang sign bilaterally No ankle clonus Downgoing Babinski Constitutional WD/WN, vitals as above Neck normal visual inspection Respiratory normal respiratory effort Skin no rashes, warm and dry Neurologic deep tendon reflexes 2+ bilaterally Results & Data Results & Data Laboratory Results . Diagnostic Findings C2-C3: There is a diffuse posterior disc bulge/osteophyte complex measures 3.2 mm causing bilateral moderate to marked neural foraminal stenosis and copressing the anterior thecal sac. No significant spinal canal stenosis was noted. C3-C4: There is a diffuse posterior disc bulge/osteophytic complex measuring 3.5 mm compressing the anterior thecal sac and causing bilateral moderate to marked neural foraminal stenosis with no significant spinal canal stenosis noted. C4-C5: There is right posterolateral disc extrusion with caudal migration/osteophytic complex measures 5 mm indenting the anterior thecal sac and causing marked right and moderate left neural foraminal stenosis with no significant spinal canal stenosis noted. C5-C6: There is posterior disc herniation/osteophytic complex measuring 5.6 mm compressing the anterior thecal sac and causing severe spinal canal stenosis, and marked bilateral neural foraminal stenosis. C6-C7: There is a diffuse posterior disc bulge indenting the anterior thecal sac and causing mild to moderate lateral recess stenosis , resulting in indentation on exiting nerve roots. It measures about 1.6 mm. No significant spinal canal stenosis was noted. C7-T1: There is no significant disc pathology. Normal morphology of the ligamentum flava. No arthropathy of the uncovertebral and zygapophyseal joints. No significant spinal canal stenosis. MRI of cervical spine available for review and interpreted personally. Large disc herniation at C5-6 causes moderate-severe central canal stenosis with deformation of ventral aspect of the cord, no myelomalacia is seen. Severe bilateral foraminal stenosis with C6 nerve root compression. C4-5 disc herniation with fragment causing right sided canal stenosis and severe foraminal stenosis on right. PG Care Time/CCT Total # of Minutes Spent Total Time Spent with Patient: Total time spent is greater than 50% in coordination of care (as documented) at patient's floor/unit and/or counseling patient: Coding Level of Care Code 94238 IN/OBS CONSULT LVL 3,45M Diagnoses Herniated nucleus pulposus, C5-6 right M50.222 Herniated nucleus pulposus, C4-5 M50.221 Cervical radicular pain M54.12 Cervical stenosis of spine M48.02
[2024-12-18] MEDS: LOSARTAN POTASSIUM 50 MG TAB PO SCH ×2 (10:06→21:04)
[2024-12-18] MEDS: dexAMETHasone 10 MG in SYRINGE 0 ML IV SCH (13:27)
--- NOTE | 2024-12-18 14:40 | Communication Note ---
Date of Service: December 18, 2024 Patient was seen and examined at bedside. 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 He denies any fever/chills/bowel and bladder incontinence. He is being managed for the following: Cervical radiculopathy Patient presents with increasing neck pain associated with RUE pain. See above. C-spine MRI: Multilevel cervical disc bulge/osteophyte complexes with foraminal and spinal canal stenosis, more evident at C5-C6 disc. Straightening of cervical spine. Continue with steroid, opioids pain medication, Lyrica. [facility]ospine on board, appreciate recommendation. Avoid NSAIDs. Hypokalemia secondary to diuretic Rx , hold home hctz. Other chronic medical conditions: Continue with/resume home meds as and when able. hypertension, stable heterozygous factor V Leiden abnormality, significant family history without personal history of blood clots as per patient account prediabetes, hemoglobin A1c of 5.8 in 2022 . a1c this admission 5.3 past tobacco abuse DVT prophylaxis. SCDs re: possible procedure Full code Text document was generated using [employer] voice recognition software. It may contain grammatical or spelling errors. Kindly contact undersigned for clarification of any documentation item in question. For detailed information on the patient, refer to today's H&P note.
[2024-12-18] MEDS: tiZANidine HCL 4 MG TABLET PO PRN (15:25)
--- NOTE | 2024-12-18 16:30 | Emergency Department Note ---
Impression & Plan Cervical disc herniation, Cervical radiculopathy, Cervical radicular pain, Cervical stenosis of spine Admit to the [facility] ED Provider Note NAME: RED CRAWFORD AGE: 44 SEX: Male INFORMANT: Patient ED PROVIDER(S): Mary Thurman DO CHIEF COMPLAINT: Neck pain and right arm pain PLAN: Disposition: Admit to the [facility] MEDICAL DECISION MAKING: This is a 44-year-old male patient with a known history of bulging cervical disks who presents to the emergency department with worsening neck pain and right arm pain. Patient describes shoveling snow earlier in the week with some mild increasing discomfort in his neck and extending into his right shoulder and right arm. Pain has drastically worsened tonight. Patient finds it most comfortable to stand up. Pain worsens with sitting or laying down. Patient has received multiple doses of IV analgesia including Toradol, Dilaudid and Decadron with very minimal relief of his pain. Laboratory studies revealed no leukocytosis or anemia. Glucose was 124. Potassium was slightly low at 3.3. Renal function was normal. MRI of the cervical spine shows posterior disc herniation at C5-C6 with significant spinal stenosis at that level along with disc bulging at C4-C5 and C6-C7. The patient will require inpatient care for intractable cervical radiculopathy pain and further evaluation by spinal surgery. Care/management discussed with: shared services and outsourcing manager, [facility] and Dr. Deal from spinal surgery Triage Nursing notes: reviewed and agree with them. Vital Signs: reviewed and remarkable for no significant abnormalities Differential Diagnosis: Cervical strain, cervical radiculopathy, spinal stenosis, degenerative disc disease, acute disc herniation Diagnostics, independently interpreted by me: Imaging studies: MRI of the cervical spine: As per Imb[facility] HPI: 44 year old Male arrives for evaluation of neck pain and right arm pain. Patient has a known history of bulging cervical disks who presents to the emergency department with worsening neck pain and right arm pain. The patient was shoveling snow earlier in the week with some mild increasing discomfort in his neck extending into the right shoulder and right arm. Pain has drastically worsened tonight to the point that he cannot get comfortable. He tried taking a leftover oxycodone and muscle relaxant from a procedure from 4 years ago with no relief of his symptoms. The patient has also developed some recurrent diarrhea but thinks this may be from taking multiple doses of Advil. PAST MEDICAL HISTORY: See Below, PAST SURGICAL HISTORY: See Below, SOCIAL HISTORY: See Below, HOME MEDICATIONS: See list ALLERGIES: See Below VITALS: See Below PHYSICAL EXAMINATION: HEENT: Head - normocephalic and atraumatic. Pupils are equal, round, and reactive to light. Extraocular eye muscles are intact and sclera are anicteric. Nose - moist nasal mucosa without discharge. Mouth - moist buccal mucosa. Oropharynx is nonerythematous and there is no tonsillar exudate or edema noted. Neck: Supple; no JVD, nuchal rigidity, cervical lymphadenopathy. There is some edema noted over the right trapezius muscle. There is minimal discomfort with palpation over the right cervical paraspinous muscles. There is mild pain to palpation over the right supraspinatus muscle. Patient has limited range of motion with rotation to the right and sidebending to the right. Patient has a negative Spurling test. Heart: Regular rate and rhythm. There is a normal S1 and S2 with no murmurs, clicks, or gallops appreciated. Lungs: Clear to auscultation bilaterally with no wheezes, rales, or rhonchi. Abdomen: Soft, completely nontender, nondistended, with good bowel sounds. There are no palpable pulsatile masses or hepatosplenomegaly. There is no guarding, rigidity, or rebound noted. Extremities: No evidence of cyanosis, clubbing, or edema. There are easily palpable peripheral pulses. Neuro:The patient is awake and alert, oriented to day, time, and place. Muscle strength is 5/5 in all 4 extremities. The patient has equal cell stripper strength and equal pedal push and pull. There are no cerebellar signs. Patient has normal sensation in both hands. Emergency department treatment: IV Dilaudid, IV Zofran, IV Toradol, IV Decadron, oral Imodium, IV Dilaudid, IV Dilaudid, IV Toradol Emergency department course: The patient was evaluated in room A-10. A complete history and physical was performed. IV lock was initiated and labs were drawn as above. Patient was medicated with a dose of IV Toradol and IV Dilaudid which gave the patient some relief of his discomfort but he was unable to sit down in the bed or go for MRI at this point. He was given a dose of IV Decadron and another dose of IV Dilaudid which did facilitate getting the MRI of the cervical spine. Upon returning from radiology, the patient was still having diarrhea and was given a dose of oral Imodium. He went on to receive another dose of IV Dilaudid but was again standing at the side of the bed in severe pain. He requested another dose of IV Toradol. I discussed the case with Dr. Deal from spinal surgery and reviewed the results of the MRI. I then discussed the case with the [facility] who will evaluate the patient for further inpatient care and consult spinal surgery. Past Med/Surg History Problem List (Updated 12/18/24 @ 16:30 by Mary Thurman DO) Cervical disc herniation (Acute) Cervical stenosis of spine (Acute) Cervical radicular pain (Acute) Herniated nucleus pulposus, C4-5 Herniated nucleus pulposus, C5-6 right Cervical radiculopathy (Acute) Obstructive sleep apnea Right heart enlargement HTN (hypertension) (Chronic) Ringworm (Acute) Allergic reaction (Acute) Medical History Hernia, inguinal Surgical History H/O laminectomy No pertinent past surgical history Family History Mother Hypertension Father Seizures Combined hyperlipidemia Sister Factor II deficiency Factor 5 Leiden mutation, heterozygous Other No pertinent family history Social History Smoking Status: Former smoker Tobacco Type: Cigarettes and Cigars Age Started Using Tobacco: 19; Age Quit Using Tobacco: 31; Cigarettes Per Day: occasional; Second Hand Exposure: Yes (parents smoked till 10 ); Do You Dip or Chew Tobacco: No; Hx Alcohol Use: Yes Alcohol type: beer, wine and hard liquor Alcohol type Comment: 2-3 drinks 3 days weekly. Alcohol Intake Frequency: 2-3 x/Week Hx Substance Use: No Preferred Language: Slovak Visual Impairment: No Limitations Hearing Ability: Normal Web Content Editor Required: No Beliefs That Will Affect Care: None marital status: Current Living Situation: Spouse current occupational status: employed Other Information That Helps Us Care for You: No Feels Safe at Home: Yes Safety Concerns: Feels Safe At This Time Diet: regular Diet Comment: does not watch salt intake. fresh fruits and vegetables. caffeine: Yes (8-16 oz cup coffee) Physical Activity Frequency: 1-2 Times per Week (walks while hunting and fishing. ) Assistive Devices: Glasses Allergies Allergies Allergy/AdvReac Type Severity Reaction Status Date / Time JOSE FRANCISCO Inhibitors Allergy Intermediate COUGH Verified 10/12/24 13:55 lisinopril Allergy Intermediate RESPIRATORY Unverified 10/12/24 13:55 PROBLEMS, COUGH cat dander Allergy Unknown watering Verified 10/12/24 13:55 eyes Home Meds Previous Rx's Medication Instructions Recorded losartan 100 1 tab PO DAILY #30 tabs 12/02/24 mg-hydrochlorothiazide 25 mg tablet tirzepatide (weight loss) 12.5 12.5 mg (0.5 mL) subcut Q7D #2 mL 12/03/24 mg/0.5 mL subcutaneous pen injector Results & Data (ED) Vital Signs Vital Signs - 24 hr 12/17/24 23:39 12/18/24 00:04 12/18/24 00:05 Temperature 36.5 C Temperature Source Temporal Artery Scan Pulse Rate 93 H 92 H Pulse Rate [Left Finger] 107 H Pulse Rate from SpO2 Sensor Pulse Rhythm [Left Finger] Regular Pulse Strength [Left Finger] Normal Respiratory Rate 19 22 Respiratory Effort / Characteristics Non-Labored Spontaneous Non-Labored Spontaneous Respiratory Depth Normal Normal Respiratory Pattern Regular Blood Pressure 174/117 H Blood Pressure [Left Arm] 158/108 H Blood Pressure Mean 136 Blood Pressure Mean [Left Arm] 124 Blood Pressure Position [Left Arm] Standing Pulse Oximetry 99 98 Oxygen Delivery Method Room Air Room Air Sepsis Recent Fever Within 48 Hours No Sepsis New/Unexplained Change in Mental Status N/A Sepsis Action Taken by Nursing No Action Required 12/18/24 00:30 12/18/24 01:00 12/18/24 01:38 Temperature Temperature Source Pulse Rate 85 98 H 96 H Pulse Rate [Left Finger] Pulse Rate from SpO2 Sensor 85 103 H 95 H Pulse Rhythm [Left Finger] Pulse Strength [Left Finger] Respiratory Rate 18 15 20 Respiratory Effort / Characteristics Respiratory Depth Respiratory Pattern Blood Pressure 143/92 H 116/82 Blood Pressure [Left Arm] Blood Pressure Mean 99 93 Blood Pressure Mean [Left Arm] Blood Pressure Position [Left Arm] Pulse Oximetry 96 94 95 Oxygen Delivery Method Room Air Room Air Room Air Sepsis Recent Fever Within 48 Hours Sepsis New/Unexplained Change in Mental Status Sepsis Action Taken by Nursing 12/18/24 03:01 12/18/24 03:01 12/18/24 03:30 Temperature Temperature Source Pulse Rate 100 H 80 Pulse Rate [Left Finger] Pulse Rate from SpO2 Sensor 80 Pulse Rhythm [Left Finger] Pulse Strength [Left Finger] Respiratory Rate 12 12 Respiratory Effort / Characteristics Respiratory Depth Respiratory Pattern Blood Pressure 130/85 130/85 121/90 Blood Pressure [Left Arm] Blood Pressure Mean 95 95 100 Blood Pressure Mean [Left Arm] Blood Pressure Position [Left Arm] Pulse Oximetry 94 96 Oxygen Delivery Method Sepsis Recent Fever Within 48 Hours Sepsis New/Unexplained Change in Mental Status Sepsis Action Taken by Nursing 12/18/24 04:04 Temperature Temperature Source Pulse Rate 81 Pulse Rate [Left Finger] Pulse Rate from SpO2 Sensor Pulse Rhythm [Left Finger] Pulse Strength [Left Finger] Respiratory Rate Respiratory Effort / Characteristics Respiratory Depth Respiratory Pattern Blood Pressure Blood Pressure [Left Arm] Blood Pressure Mean Blood Pressure Mean [Left Arm] Blood Pressure Position [Left Arm] Pulse Oximetry Oxygen Delivery Method Sepsis Recent Fever Within 48 Hours Sepsis New/Unexplained Change in Mental Status Sepsis Action Taken by Nursing Laboratory Data 12/18/24 00:27 12/18/24 00:27 Lab Results 12/18/24 Range/Units 00:27 WBC 10.68 (4.8-10.8) K/ul RBC 5.60 (4.70-6.10) M/uL Hgb 18.0 (14.0-18.0) g/dl Hct 49.5 (42.0-52.0) % MCV 88.4 (80.0-100.0) fL MCH 32.1 (25.0-34.0) pg MCHC 36.4 H (32.0-36.0) g/dL RDW Std Deviation 40.2 (36.4-46.3) fL RDW Coeff of Leodan 12.4 (11.5-14.5) % Plt Count 252 (130-400) K/uL MPV 10.8 (9.4-12.4) fL Immature Gran % (Auto) 0.4 % Neut % (Auto) 47.7 % Lymph % (Auto) 38.1 % Ceiba % (Auto) 11.3 % Eos % (Auto) 1.6 % Baso % (Auto) 0.9 % Neut # (Auto) 5.09 (1.40-6.50) K/uL Lymph # (Auto) 4.07 H (1.20-3.40) K/uL Ceiba # (Auto) 1.21 H (0.11-0.59) K/uL Eos # (Auto) 0.17 (0.00-0.50) K/uL Baso # (Auto) 0.10 (0.00-0.20) K/uL Immature Gran # (Auto) 0.04 (0.01-0.20) K/uL Sodium 136 (136-145) mmol/L Potassium 3.3 L (3.5-5.1) mmol/L Chloride 101 (98-107) mmol/L Carbon Dioxide 23 (21-32) mmol/L Anion Gap 12 H (3-11) BUN 16 (6-23) mg/dl Creatinine 0.91 (0.6-1.4) mg/dl Est Cr Clr Drug Dosing 118.2 ml/min eGFR 105.92 BUN/Creatinine Ratio 17.6 (10-20) Glucose 124 H (70-99(Fasting)) mg/dl Estimat Average Glucose 105 mg/dl Hemoglobin A1c 5.3 (4.5-5.6) % Calcium 10.3 (8.6-10.3) mg/dl Magnesium 1.9 (1.7-2.4) mg/dl Total Bilirubin 0.8 (0.2-1.0) mg/dl AST 24 (13-39) U/L ALT 34 (7-52) U/L Alkaline Phosphatase 57 (34-104) U/L Total Protein 8.1 (6.0-8.3) gm/dl Albumin 5.3 H (3.4-5.0) gm/dl Globulin 2.8 (2.5-4.0) gm/dl Albumin/Globulin Ratio 1.9 (0.9-2) Administered Medications Dexamethasone 10 mg/ Syringe 2.5 mls @ 1.25 mls/min IV Q8H FRANCIA Stop: 12/20/24 06:01 Last Admin: 12/18/24 13:27 Dose: 1.25 mls/min Documented By: WRS Morphine Sulfate (Morphine Sulfate 4 Mg/Ml 1 Ml Carp\Vial) 4 mg IV Q4H PRN PRN Reason: Pain Stop: 01/01/25 06:02 Last Admin: 12/18/24 13:23 Dose: 4 mg Documented By: Admin: 12/18/24 09:17 Dose: 4 mg Documented By: CELINE Oxycodone HCl (Oxycodone Hcl Ir 5 Mg Tab (Immediate Release)) 5 - 10 mg PO QID PRN PRN Reason: Pain Stop: 01/01/25 04:53 Last Admin: 12/18/24 15:24 Dose: 10 mg Documented By: Admin: 12/18/24 07:25 Dose: 10 mg Documented By: CELINE Tizanidine HCl (Tizanidine Hcl 4 Mg Tablet) 4 mg PO TID PRN PRN Reason: spasm Stop: 01/17/25 06:01 Last Admin: 12/18/24 15:25 Dose: 4 mg Documented By: CELINE Discontinued Medications Dexamethasone (Dexamethasone Sod Inj 4 Mg/Ml Vial) 10 mg IV NOW STA Stop: 12/18/24 01:28 Last Admin: 12/18/24 01:39 Dose: 10 mg Documented By: SALIMA Hydromorphone HCl (Hydromorphone Inj 1 Mg/Ml Syringe) 1 mg IV NOW STA Stop: 12/18/24 00:27 Last Admin: 12/18/24 00:38 Dose: 1 mg Documented By: SALIMA Hydromorphone HCl (Hydromorphone Inj 1 Mg/Ml Syringe) 1 mg IV NOW STA Stop: 12/18/24 01:28 Last Admin: 12/18/24 01:42 Dose: 1 mg Documented By: SALIMA Hydromorphone HCl (Hydromorphone Inj 1 Mg/Ml Syringe) 1 mg IV NOW STA Stop: 12/18/24 03:36 Last Admin: 12/18/24 03:48 Dose: 1 mg Documented By: DARWIN Potassium Chloride/Sodium Chloride (Normal Saline W/20 Meq Kcl) 20 meq in 1,000 mls @ 100 mls/hr IV .Q10H ONE Stop: 12/18/24 14:54 Last Infusion: 12/18/24 15:28 Dose: Infused Documented By: Infusion: 12/18/24 06:00 Dose: 100 mls/hr Documented By: Infusion: 12/18/24 05:37 Dose: 0 mls/hr Documented By: Admin: 12/18/24 05:37 Dose: 100 mls/hr Documented By: DARWIN Ketorolac Tromethamine (Ketorolac 30 Mg/Ml Vial) 30 mg IV NOW ONE Stop: 12/18/24 00:27 Last Admin: 12/18/24 00:41 Dose: 30 mg Documented By: SALIMA Ketorolac Tromethamine (Ketorolac 30 Mg/Ml Vial) 30 mg IV NOW ONE Stop: 12/18/24 04:58 Last Admin: 12/18/24 05:04 Dose: 30 mg Documented By: DARWIN Loperamide HCl (Loperamide Hcl 2 Mg Cap) 2 mg PO NOW STA Stop: 12/18/24 00:32 Last Admin: 12/18/24 00:40 Dose: 2 mg Documented By: SALIMA Losartan Potassium (Losartan Potassium 50 Mg Tab) 100 mg PO QAM FRANCIA Stop: 01/17/25 08:59 Last Admin: 12/18/24 10:06 Dose: Not Given Documented By: CELINE Ondansetron HCl (Ondansetron Inj 2 Mg/Ml 2 Ml Vial) 4 mg IV NOW STA Stop: 12/18/24 00:27 Last Admin: 12/18/24 00:36 Dose: 4 mg Documented By: SALIMA Potassium Chloride (Potassium Chloride Crtab 20 Meq Tabcr) 40 meq PO NOW STA Stop: 12/18/24 04:56 Last Admin: 12/18/24 05:37 Dose: 40 meq Documented By: DARWIN Pregabalin (Pregabalin 25 Mg Cap) 25 mg PO BID [facility] Stop: 01/17/25 06:04 Last Admin: 12/18/24 06:31 Dose: 25 mg Documented By: THO Tizanidine HCl (Tizanidine Hcl 4 Mg Tablet) 2 mg PO NOW STA Stop: 12/18/24 06:03 Last Admin: 12/18/24 06:31 Dose: 2 mg Documented By: THO Discharge Plan Visit Data Chief Complaint: Neck Injury/Pain Stated Complaint: NECK PAIN ED Provider: Mary Thurman Discharge Problem: Cervical disc herniation, Cervical radiculopathy, Cervical radicular pain, Cervical stenosis of spine Patient Disposition: Admitted As Inpatient Discharge Instructions Interventions: ED Discharge Assessment Last Done: 12/18/24 05:27
[2024-12-18] MEDS: ACETAMINOPHEN 325 MG TAB PO PRN (16:51)
[2024-12-18] MEDS: HYDROmorphone HCL 2 MG TAB PO PRN (19:22)
[2024-12-18] MEDS: DOCUSATE SODIUM 100 MG CAP PO SCH (21:04)
[2024-12-18] MEDS: PREGABALIN 75 MG CAP PO SCH (21:05)
[2024-12-19 06:28] LABS: BUN Creatinine Ratio 17.9 (10-20); Calcium 9.9 mg/dl (8.6-10.3); Creatinine Clr Calc Pharmacy 151.1 ml/min; Potassium 4.1 mmol/L (3.5-5.1)
[2024-12-19] MEDS: POLYETHYLENE (MIRALAX) 17 GM PACK PO SCH (08:15)
--- NOTE | 2024-12-19 10:53 | Orthopedic Progress Note ---
Date of Service December 19, 2024 Assessment & Plan (1) Cervical disc herniation: (2) Cervical stenosis of spine: (3) Cervical radicular pain: (4) Herniated nucleus pulposus, C4-5: (5) Herniated nucleus pulposus, C5-6 right: Plan Patient has intractable pain due to cervical disc herniations and cervical stenosis. I discussed in detail the plan for anterior cervical discectomy and fusion at C4-5 and C5-6. We discussed surgical intervention at length, and the patient was informed that risks include but are not limited to: bleeding, infection, blood clots, no relief of symptoms, hoarseness or voice change, difficulty swallowing, dural tear, nerve injury, paralysis, weakness, pain, instrumentation failure, prolonged recovery, need for physical therapy or rehabilitation services, loss of bowel/bladder control, recurrent stenosis or disc herniation, need for more surgery, and in very rare instances even . We also discussed that there is risk of pseudarthrosis formation, failure of the fusion to occur which may increase chances of instrumentation failure or need for further surgery. We also discussed that fusing the spine puts the patient at risk for adjacent segment breakdown and possible need for future surgery, the risk is approximately 3-5% per year. The patient voiced understanding of the risks and benefits of surgery and elected to proceed. Would like to start planning for surgery, given the fact that he has been using antiplatelet agents as well as having factor V Leiden heterozygosity, would like input from hematology on the best timing for surgery. I discussed the increased risk of hematoma formation if there is platelet dysfunction however he may be at increased risk of clotting given his factor V situation. Would look at doing surgery in the next several days however would appreciate input from hematology as to clotting versus hematoma risks given abnormal clotting function. Subjective Patient continues with right upper extremity radicular pain, no relief despite steroids Lyrica muscle relaxers and narcotic pain medication. Given the severity of his pain and lack of improvement he would like to discuss proceeding with surgical intervention. Plan for surgery would be for anterior cervical discectomy and fusion at C4-5 and C5-6. We discussed the fact that he has been using antiplatelet medication in the form of ibuprofen up until Gm evening which can affect platelet function, however he also has heterozygous factor V Leiden. Review of Systems All systems reviewed & are unremarkable except as noted in HPI & below. Physical Exam Constitutional: Well developed, appears stated age Psych: patient is coherent and answers questions appropriately, normal affect Eye: Normal gaze, no redness to sclera, pupils round and equal Pulm: Normal respiratory effort, no wheezing Cardiovascular: no significant peripheral edema, 2+ radial pulses Skin shows no rashes, lesions 5/5 muscle strength with testing of deltoids, wrist extensors, triceps, finger flexion, and hand intrinsics with the exception of 4 out of 5 strength right wrist extensor Sensation intact to light touch in the C5-T1 dermatomes bilaterally with the exception of paresthesias right C6 dermatome 2+ reflexes at biceps, triceps, and brachioradialis bilaterally Negative Tsang sign bilaterally, positive Spurling test on the right Normal gait Results & Data Results & Data Laboratory Results . Diagnostic Findings . PG Care Time/CCT Total # of Minutes Spent Total Time Spent with Patient: Total time spent is greater than 50% in coordination of care (as documented) at patient's floor/unit and/or counseling patient: Coding Level of Care Code 52619 SUB INP/OBS CARE 3/50MIN (57 - DECISION FOR SURGERY) Diagnoses Cervical disc herniation M50.20 Cervical stenosis of spine M48.02 Cervical radicular pain M54.12 Herniated nucleus pulposus, C4-5 M50.221 Herniated nucleus pulposus, C5-6 right M50.222
--- NOTE | 2024-12-19 16:16 | Hospitalist Progress Note ---
Date of Service December 19, 2024 Assessment & Plan (1) Cervical radicular pain: Plan 44-year-old male with PMH of HTN, HLD, GERD, mild CAMILO, heterozygous factor V Leiden abnormality, prediabetes, anxiety disorder, past tobacco abuse with a history of chronic neck pain for about 25 years following a football injury presented this time with progressive worsening of neck pain over the last few days [facility] after shoveling snow at home associated with some radiation to the right arm. He denies any fever/chills/bowel and bladder incontinence. He is being managed for the following: Cervical radiculopathy Patient presents with increasing neck pain associated with RUE pain. See above. C-spine MRI: Multilevel cervical disc bulge/osteophyte complexes with foraminal and spinal canal stenosis, more evident at C5-C6 disc. Straightening of cervical spine. Continue with steroid, opioids pain medication, Lyrica. Orthospine on board, appreciate recommendation. Avoid NSAIDs. Hypokalemia likely secondary to diuretic Rx , now improved, resume home hctz as BP slightly higher and monitor closely. Other chronic medical conditions: Continue with/resume home meds as and when able. hypertension, stable heterozygous factor V Leiden abnormality, significant family history without personal history of blood clots as per patient account prediabetes, hemoglobin A1c of 5.8 in 2022 . a1c this admission 5.3 past tobacco abuse DVT prophylaxis. SCDs re: possible procedure Full code Text document was generated using [employer] voice recognition software. It may contain grammatical or spelling errors. Kindly contact undersigned for clarification of any documentation item in question. Admission and Anticipated Discharge Date Admission Date: December 18, 2024 Subjective patient was seen and examined at bedside. Patient was lying in bed, on room air, NAD, resting comfortably. Patient reports neck pain and RUE pain 6/10, reports minimal improvement with pain medications. Patient reports it has affected his activities of daily living and his movement. Discussed with orthospine, would like hematology to weigh in given recent use of antiplatelet [ketorolac] and history of factor V Leiden abnormality before deciding on timing of surgery. Discussed with hematology, hematology aware. Physical Exam Physical Exam: GENERAL: Comfortable, pleasant, obese, no respiratory distress SKIN: Normal color, warm HEENT: [place] palpebral conjunctivae, no ptosis, moist buccal mucosa NECK : Limited neck motion, right cervical tenderness CHEST : CTA, no tenderness HEART : RRR, no obvious murmurs ABDOMEN: Some distention, nontender EXTREMITIES : No LE swelling/tenderness, no other conspicuous deformities noted NEUROLOGIC : Coherent, no facial asymmetry, no other gross focality Results & Data Results & Data Vital Signs (Past 12 Hours) Vital Signs Temp Pulse Resp BP Pulse Ox O2 Del Method 12/19/24 15:45 36.8 C 74 15 143/75 H 96 Room Air 12/19/24 07:33 36.8 C 85 16 118/75 96 Room Air
[2024-12-19] MEDS: FAMOTIDINE 20 MG TAB PO SCH (17:25)
[2024-12-19] MEDS: oxyCODONE HCL IR 5 MG TAB (IMMEDIATE RELEASE) PO PRN (20:17)
[2024-12-20] MEDS: HYDROmorphone INJ 1 MG/ML SYRINGE IV STA (00:12)
[2024-12-20] MEDS: HYDROmorphone INJ 1 MG/ML SYRINGE IV PRN (05:22)
[2024-12-20 07:22] LABS: Calcium 9.8 mg/dl (8.6-10.3); Potassium 4.2 mmol/L (3.5-5.1)
[2024-12-20 07:35] LABS: BUN Creatinine Ratio 19.5 (10-20); Creatinine Clr Calc Pharmacy 135.5 ml/min
[2024-12-20] MEDS: hydroCHLOROthiazide 25 MG TAB PO SCH (07:43)
--- NOTE | 2024-12-20 09:18 | Orthopedic Progress Note ---
<Statement entered by Alonzo Peterson MD - 12/20/24 10:46> Discussed with Ronni Rosales PA-C, agree with above documentation. Have arranged OR time for Friday AM 7:30 for ACDF C4-5, C5-6. Will increase Lyrica for pain control. Date of Service December 20, 2024 Assessment & Plan (1) Cervical disc herniation: (2) Cervical stenosis of spine: (3) Cervical radicular pain: (4) Herniated nucleus pulposus, C4-5: (5) Herniated nucleus pulposus, C5-6 right: Plan Plan continues to be for surgery, consisting of anterior cervical discectomy and fusion (ACDF) at C4-5 and C5-6. Further discussed the fact that he has been using antiplatelet medication in the form of ibuprofen up until Friday evening, which can affect platelet function, however he has the known heterozygous factor V Leiden. He persists w/ intractable pain due to cervical disc herniations and cervical stenosis. Further discussed surgical intervention, and he understands the risks include, but are not limited to: bleeding, infection, blood clots, no relief of symptoms, hoarseness or voice change, difficulty swallowing, dural tear, nerve injury, paralysis, weakness, pain, instrumentation failure, prolonged recovery, need for physical therapy or rehabilitation services, loss of bowel/bladder control, recurrent stenosis or disc herniation, need for more surgery, and in very rare instances even . Again discussed that there is risk of pseudarthrosis formation, failure of the fusion to occur, which may increase chances of instrumentation failure or need for further surgery. Again discussed that fusing the spine puts the patient at risk for adjacent segment breakdown and possible need for future surgery, with the risk at approximately 3-5% per year. The patient voiced understanding of the risks and benefits of surgery and elects to proceed. Due to presence of factor V Leiden heterozygosity, awaiting input from hematology on the best timing for surgery. Further discussed the increased risk of hematoma formation if there is platelet dysfunction, however, he may be at increased risk of clotting given his factor V situation. Planning for surgery, possibly later this afternoon vs. within the next day or 2, depending on hematology recommendations as to clotting versus hematoma risks given his abnormal clotting function. Admission and Anticipated Discharge Date Admission Date: December 19, 2024 Subjective Patient again continues with right upper extremity radicular pain and paresthesia. He says that the pain is maybe actually a little worse than yesterday, if anything. He was only able to sleep about a total of 3 hours last night. He had tried to take a shower, which she says was a mistake, as it seems to have exacerbated his symptoms possibly. Continues with no relief despite PO and IV dilaudid, tizanidine, IV dexamethasone, and Lyrica. He is still wishing to pursue surgery. He says the carpenter rough has not yet been by to see him. He denies history of blood clots, but does admit to heterozygous Factor V Leiden. Physical Exam Physical Exam: GENERAL: Speech and cognition is intact. Mood and affect is appropriate. In no acute distress. HEAD: Normocephalic; atraumatic. NECK: Ice pack in place to right side of neck. CHEST: Regular chest respiration and excursion. EXTREMITIES: Distal sensation and pulses intact bilaterally. NEURO: C5 - C8 w/ intact sensation bilaterally,except diminished C6 on R. SKIN: No lesions, erythema, or rashes noted. Upper extremity resisted strength testing: R elbow flexion - 4+/5 L elbow flexion - 5/5 R elbow extension - 5/5 L elbow extension - 5/5 R shoulder abduction - 5/5 L shoulder abduction - 5/5 R wrist extension - 4+/5 L wrist extension - 5/5 R wrist flexion - 5/5 L wrist flexion - 5/5 R hand intrinsics - 5/5 L hand intrinsics - 5/5 Special tests: Positive Spurling's test right Negative Tsang's test bilateral Results & Data Vital Signs (Past 12 Hours) Vital Signs Temp Pulse Resp BP Pulse Ox O2 Del Method 12/20/24 07:02 36.9 C 75 18 123/63 95 Room Air Diagnostic Findings EXAM: MR cervical spine wo con CLINICAL HISTORY: NO HX CANCER. NECK SURG NO RECENT TRAUMA NECK PAIN X 1 DAY WITH RIGHT RADICULOPATHY. TECHNIQUE: An MRI of the cervical spine was performed without contrast. Sequences obtained include sagittal T1-weighted, T2-weighted, STIR (Short Tau Inversion Recovery), and axial T2-weighted sequences. Images were sent through PACS for diagnostic interpretation. COMPARISON: No previous studies are available for comparison. FINDINGS: Vertebral Alignment: Straightening of cervical spine noted possibly due to muscle spasm. No fracture/dislocation was noted. Vertebral Bodies and Intervertebral Discs: Normal vertebral body height and alignment. Cervical spondylosis is evident by marginal osteophytic lipping of the opposing vertebral endplates and dehydration of all cervical discs. [id number] analysis: C2-C3: There is a diffuse posterior disc bulge/osteophyte complex measures 3.2 mm causing bilateral moderate to marked neural foraminal stenosis and copressing the anterior thecal sac. No significant spinal canal stenosis was noted. C3-C4: There is a diffuse posterior disc bulge/osteophytic complex measuring 3.5 mm compressing the anterior thecal sac and causing bilateral moderate to marked neural foraminal stenosis with no significant spinal canal stenosis noted. C4-C5: There is right posterolateral disc extrusion with caudal migration/osteophytic complex measures 5 mm indenting the anterior thecal sac and causing marked right and moderate left neural foraminal stenosis with no significant spinal canal stenosis noted. C5-C6: There is posterior disc herniation/osteophytic complex measuring 5.6 mm compressing the anterior thecal sac and causing severe spinal canal stenosis, and marked bilateral neural foraminal stenosis. C6-C7: There is a diffuse posterior disc bulge indenting the anterior thecal sac and causing mild to moderate lateral recess stenosis , resulting in indentation on exiting nerve roots. It measures about 1.6 mm. No significant spinal canal stenosis was noted. C7-T1: There is no significant disc pathology. Normal morphology of the ligamentum flava. No arthropathy of the uncovertebral and zygapophyseal joints. No significant spinal canal stenosis. Spinal Cord and Nerve Roots: The spinal cord demonstrates normal signal intensity. Soft Tissues: Paraspinal soft tissues appear normal without evidence of abnormal signal intensity or mass lesions. IMPRESSION: 1. Multilevel cervical disc bulge/osteophyte complexes with foraminal and spinal canal stenosis, more evident at C5-C6 disc as described. 2. Straightening of cervical spine. 3. Cervical spondylosis. Electronically signed by Cesar Massey 12-18-2024 03:57 AM Dictated: 12/18/24 0226 Transcribed:
[2024-12-20] MEDS: LACTULOSE SYRUP 20 GM/30 ML UDC PO ONE (10:52)
--- NOTE | 2024-12-20 12:42 | Oncology Consultation ---
Date of Consultation December 20, 2024 Assessment & Plan (1) Cervical disc herniation: (2) Factor V Leiden: Plan -Factor V Leiden mutation does not increase risk of bleeding/hematoma. Presence of heterozygous factor V Leiden mutation may increase risk of VTE postsurgery. Calculated Caprini score is greater than 5 -Can proceed with surgery as scheduled. However, recommend pharmacologic thromboprophylaxis (low-dose Lovenox/low dose DOAC ) for 10 to 14 days if patient is going to be immobile for more than 12 hours -If he is able to ambulate easily less than 12 hours after surgery, risk of thrombosis Lower and so recommend early/frequent ambulation with or without low- dose aspirin. Thank you for this consult. Please feel free to call if you have any other questions. History of Present Illness Reason for Consultation: Factor V heterozygous mutation Attending Physician: Jennifer Lr MD History of Present Illness 44-year-old gentleman admitted to [facility] with symptoms suggestive of cervical radiculopathy. MRI cervical spine revealed multilevel cervical disc bulge/osteophyte complexes with foraminal and spinal canal stenosis more evident at C5-C6 disc. He is scheduled for anterior cervical discectomy and fusion (ACDF) at C4-5 and C5-6 on 12/22/2024. States that he was diagnosed with factor V heterozygous mutation after thrombophilia testing was obtained due to family history of factor V mutation and VTE in his sisters. He states that his twin sisters both have a history of PE as well as factor V and prothrombin gene mutations. He indicates that his testing for prothrombin gene mutation was negative but thrombophilia testing revealed factor V heterozygous mutation. He denies any personal history of VTE Hematology was consulted due to history of factor V Leiden mutation Allergies Allergy/AdvReac Type Severity Reaction Status Date / Time JOSE FRANCISCO Inhibitors Allergy Intermediate COUGH Verified 10/12/24 13:55 lisinopril Allergy Intermediate RESPIRATORY Unverified 10/12/24 13:55 PROBLEMS, COUGH cat dander Allergy Unknown watering Verified 10/12/24 13:55 eyes Home Medications Medication Instructions Recorded Confirmed Type losartan 100 1 tab PO DAILY #30 tabs 12/02/24 12/17/24 Rx mg-hydrochlorothiazide 25 mg tablet tirzepatide (weight loss) 12.5 12.5 mg (0.5 mL) subcut Q7D #2 mL 12/03/24 0 12/17/24 Rx mg/0.5 mL subcutaneous pen injector Patient History Medical History Hernia, inguinal Surgical History H/O laminectomy No pertinent past surgical history Family History Mother Hypertension Father Seizures Combined hyperlipidemia Sister Factor II deficiency Factor 5 Leiden mutation, heterozygous Other No pertinent family history Social History Smoking Status: Former smoker Tobacco Type: Cigarettes and Cigars Age Started Using Tobacco: 19; Age Quit Using Tobacco: 31; Cigarettes Per Day: occasional; Second Hand Exposure: Yes (parents smoked till 10 ); Do You Dip or Chew Tobacco: No; Hx Alcohol Use: Yes Alcohol type: beer, wine and hard liquor Alcohol type Comment: 2-3 drinks 3 days weekly. Alcohol Intake Frequency: 2-3 x/Week Hx Substance Use: No Preferred Language: French Visual Impairment: No Limitations Hearing Ability: Normal Cvor Nurse Required: No Beliefs That Will Affect Care: None marital status: Current Living Situation: Spouse current occupational status: employed Other Information That Helps Us Care for You: No Feels Safe at Home: Yes Safety Concerns: Feels Safe At This Time Diet: regular Diet Comment: does not watch salt intake. fresh fruits and vegetables. caffeine: Yes (8-16 oz cup coffee) Physical Activity Frequency: 1-2 Times per Week (walks while hunting and fishing. ) Assistive Devices: Glasses Results & Data Vital Signs (Past 12 Hours) Vital Signs Temp Pulse Resp BP Pulse Ox O2 Del Method 12/20/24 07:02 36.9 C 75 18 123/63 95 Room Air
[2024-12-20] MEDS: PREGABALIN 75 MG CAP PO SCH (13:54)
[2024-12-20] MEDS: diphenhydrAMINE 2%/ZINC 0.1% CREAM 28.4GM TUBE EXT PRN (14:18)
[2024-12-20] MEDS: TAPENTADOL HCL 50 MG TAB PO PRN (16:09)
--- NOTE | 2024-12-20 16:28 | Hospitalist Progress Note ---
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 He denies any fever/chills/bowel and bladder incontinence. He is being managed for the following: Cervical radiculopathy Patient presents with increasing neck pain associated with RUE pain. See above. C-spine MRI: Multilevel cervical disc bulge/osteophyte complexes with foraminal and spinal canal stenosis, more evident at C5-C6 disc. Straightening of cervical spine. Continue with steroid, opioids pain medication, Lyrica. Orthospine on board, appreciate recommendation. Avoid NSAIDs. Hypokalemia likely secondary to diuretic Rx , now improved, c/w home hctz and monitor closely. Other chronic medical conditions: Continue with/resume home meds as and when able. hypertension, stable heterozygous factor V Leiden abnormality, significant family history without personal history of blood clots as per patient account. Heme evavisd, appreciate recs. prediabetes, hemoglobin A1c of 5.8 in 2022 . a1c this admission 5.3 past tobacco abuse DVT prophylaxis. SCDs re: possible procedure Full code Text document was generated using [employer] voice recognition software. It may contain grammatical or spelling errors. Kindly contact undersigned for clarification of any documentation item in question. Admission and Anticipated Discharge Date Admission Date: December 19, 2024 Subjective Patient was seen and examined at bedside. Patient was ambulating in room, on room air, NAD. Patient reports neck pain and RUE pain, reports minimal improvement with pain medications. Reports the pain affecting his sleep. Pt's at bedside who was also updated on plan of care. Physical Exam Physical Exam: GENERAL: Comfortable, pleasant, obese, no respiratory distress SKIN: Normal color, warm HEENT: [place] palpebral conjunctivae, no ptosis, moist buccal mucosa NECK : Limited neck motion, right cervical tenderness CHEST : CTA, no tenderness HEART : RRR, no obvious murmurs ABDOMEN: Some distention, nontender EXTREMITIES : No LE swelling/tenderness, no other conspicuous deformities noted NEUROLOGIC : Coherent, no facial asymmetry, no other gross focality Results & Data Results & Data Vital Signs (Past 12 Hours) Vital Signs Temp Pulse Resp BP Pulse Ox O2 Del Method 12/20/24 16:08 37.0 C 70 20 151/89 H 97 Room Air 12/20/24 07:02 36.9 C 75 18 123/63 95 Room Air
[2024-12-20] MEDS: MAGNESIUM HYDROXIDE SUSP 30 ML UDC PO PRN (17:49)
[2024-12-20] MEDS: NORTRIPTYLINE HCL 25 MG CAP PO SCH (22:05)
[2024-12-21 06:21] LABS: Calcium 9.4 mg/dl (8.6-10.3); Creatinine Clr Calc Pharmacy 125.4 ml/min; Potassium 3.4 mmol/L (3.5-5.1)
[2024-12-21] MEDS: POTASSIUM CHLORIDE CRTAB 20 MEQ TABCR PO STA (09:17)
--- NOTE | 2024-12-21 10:45 | Orthopedic Progress Note ---
Date of Service December 21, 2024 Assessment & Plan (1) Cervical disc herniation: (2) Cervical stenosis of spine: (3) Cervical radicular pain: (4) Herniated nucleus pulposus, C4-5: (5) Herniated nucleus pulposus, C5-6 right: Plan Plan continues to be for surgery, consisting of anterior cervical discectomy and fusion (ACDF) at C4-5 and C5-6. Further discussed the fact that he has been using antiplatelet medication in the form of ibuprofen up until Friday evening, which can affect platelet function, however he has the known heterozygous factor V Leiden. He persists w/ intractable pain due to cervical disc herniations and cervical stenosis. Further discussed surgical intervention, and he understands the risks include, but are not limited to: bleeding, infection, blood clots, no relief of symptoms, hoarseness or voice change, difficulty swallowing, dural tear, nerve injury, paralysis, weakness, pain, instrumentation failure, prolonged recovery, need for physical therapy or rehabilitation services, loss of bowel/bladder control, recurrent stenosis or disc herniation, need for more surgery, and in very rare instances even . Again discussed that there is risk of pseudarthrosis formation, failure of the fusion to occur, which may increase chances of instrumentation failure or need for further surgery. Again discussed that fusing the spine puts the patient at risk for adjacent segment breakdown and possible need for future surgery, with the risk at approximately 3-5% per year. The patient voiced understanding of the risks and benefits of surgery and elects to proceed. Due to presence of factor V Leiden heterozygosity, the film editor supervisor recommends that if he is immobilized for more than 12 hours, he should at least have low- dose Lovenox for 10 to 14 days or if he is able to ambulate easily after 12 hours, he may begin low-dose aspirin. Planning for surgery tomorrow morning. He should not be n.p.o. after midnight tonight. Will continue to follow. Subjective . Patient continues with right upper extremity radicular pain and paresthesias. He does say the pain is a little better this morning than it was the previous couple days. He notes that he slept a little bit longer but still probably roughly only has a total of 10 hours of sleep since his whole stay here. He notes that the increase of Lyrica has made a little bit of a difference. He is still wishing to pursue surgery. He did say that film editor supervisor has seen him and discussed possibly doing an aspirin therapy versus low-dose Lovenox postoperatively to help with possible clotting. He denies history of blood clots, but does admit to heterozygous factor V Leyden. He denies any other issues today. Review of Systems All systems reviewed & are unremarkable except as noted in HPI & below. Physical Exam .GENERAL: Speech and cognition is intact. Mood and affect is appropriate. In no acute distress. HEAD: Normocephalic; atraumatic. NECK: Ice pack in place to right side of neck. CHEST: Regular chest respiration and excursion. EXTREMITIES: Distal sensation and pulses intact bilaterally. NEURO: C5 - C8 w/ intact sensation bilaterally,except diminished C6 on R. SKIN: No lesions, erythema, or rashes noted. Upper extremity resisted strength testing: R elbow flexion - 4+/5L elbow flexion - 5/5 R elbow extension - 5/5L elbow extension - 5/5 R shoulder abduction - 5/5L shoulder abduction - 5/5 R wrist extension - 4+/5L wrist extension - 5/5 R wrist flexion - 5/5L wrist flexion - 5/5 R hand intrinsics - 5/5L hand intrinsics - 5/5 Special tests: PositiveSpurling's test right NegativeHoffman's test bilateral Results & Data Results & Data Laboratory Results . Diagnostic Findings . PG Care Time/CCT Total # of Minutes Spent Total Time Spent with Patient: Total time spent is greater than 50% in coordination of care (as documented) at patient's floor/unit and/or counseling patient: Coding Level of Care Code 35448 SUB INP/OBS CARE 25MIN Diagnoses Cervical disc herniation M50.20 Cervical stenosis of spine M48.02 Cervical radicular pain M54.12 Herniated nucleus pulposus, C4-5 M50.221 Herniated nucleus pulposus, C5-6 right M50.222
--- NOTE | 2024-12-21 14:37 | Hospitalist Progress Note ---
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 He denies any fever/chills/bowel and bladder incontinence. He is being managed for the following: Cervical radiculopathy Patient presents with increasing neck pain associated with RUE pain. See above. C-spine MRI: Multilevel cervical disc bulge/osteophyte complexes with foraminal and spinal canal stenosis, more evident at C5-C6 disc. Straightening of cervical spine. Continue with steroid, opioids pain medication, Lyrica. Orthospine on board, appreciate recommendation. Avoid NSAIDs. Plan for sx cain, npo midnight. Hypokalemia likely secondary to diuretic Rx , c/w home hctz and monitor closely. Monitor and replete electrolytes. Other chronic medical conditions: Continue with/resume home meds as and when ab le. hypertension, stable heterozygous factor V Leiden abnormality, significant family history without personal history of blood clots as per patient account. Jerri gamez, appreciate recs. prediabetes, hemoglobin A1c of 5.8 in 2022 . a1c this admission 5.3 past tobacco abuse DVT prophylaxis. SCDs re: possible procedure Full code Text document was generated using [employer] voice recognition software. It may contain grammatical or spelling errors. Kindly contact undersigned for clarification of any documentation item in question. Admission and Anticipated Discharge Date Admission Date: December 19, 2024 Subjective Patient was seen and examined at bedside. Patient was lying in bed, on room air, NAD. Patient reports neck pain and RUE pain, reports minimal improvement with pain medications. Reports the pain affecting his sleep and ADLs. Pt's at bedside who was also updated on plan of care. Physical Exam Physical Exam: GENERAL: Comfortable, pleasant, obese, no respiratory distress SKIN: Normal color, warm HEENT: [place] palpebral conjunctivae, no ptosis, moist buccal mucosa NECK : Limited neck motion, right cervical tenderness CHEST : CTA, no tenderness HEART : RRR, no obvious murmurs ABDOMEN: Some distention, nontender EXTREMITIES : No LE swelling/tenderness, no other conspicuous deformities noted NEUROLOGIC : Coherent, no facial asymmetry, no other gross focality Results & Data Results & Data Vital Signs (Past 12 Hours) Vital Signs Temp Pulse Resp BP Pulse Ox O2 Del Method 12/21/24 14:13 36.6 C 75 20 142/84 H 96 Room Air 12/21/24 08:12 37.1 C 75 20 131/87 96 Room Air
[2024-12-21] MEDS ORDERED: MELATONIN 3 MG TAB PO PRN (22:33)
[2024-12-22] MEDS: LACTATED RINGER'S 1,000 ML IV SCH (06:30)
[2024-12-22 06:35] LABS: BUN Creatinine Ratio 13.7 (10-20); Calcium 9.5 mg/dl (8.6-10.3); Creatinine Clr Calc Pharmacy 115.5 ml/min; Magnesium 2.2 mg/dl (1.7-2.4); Potassium 3.5 mmol/L (3.5-5.1)
[2024-12-22] MEDS ORDERED: PROPOFOL IV EMULSION 10 MG/ML 100 ML VIAL IV ONE ×3 (07:06→09:16)
[2024-12-22] MEDS ORDERED: ONDANSETRON INJ 2 MG/ML 2 ML VIAL ONE (07:06)
[2024-12-22] MEDS ORDERED: LIDOCAINE 2% 2 ML VIAL/AMP(20MG/ML) INFIL ONE (07:06)
[2024-12-22] MEDS ORDERED: ROCURONIUM BROMIDE 10 MG/ML 5 ML VIAL IV ONE (07:06)
[2024-12-22] MEDS ORDERED: SUCCINYLCHOLINE CHLORIDE 20 MG/ML 10 ML VIAL IV ONE (07:06)
[2024-12-22] MEDS ORDERED: DEXAMETHASONE SOD INJ 4 MG/ML VIAL ONE (07:06)
[2024-12-22] MEDS ORDERED: PROPOFOL IV EMULSION 10 MG/ML 20 ML VIAL IV ONE (07:06)
[2024-12-22] MEDS ORDERED: REMIFENTANIL HCL 1 MG VIAL IV ONE (07:09)
[2024-12-22] MEDS ORDERED: fentaNYL citrate PF 100 MCG/2 ML VIAL ONE ×2 (07:12→07:38)
[2024-12-22] MEDS ORDERED: MIDAZOLAM HCL 1 MG/ML 2ML VIAL ONE (07:12)
--- NOTE | 2024-12-22 07:18 | Anesthesiology Consultation ---
Date of Service December 22, 2024 Assessment & Plan (1) Encounter for pre-operative examination: Chart Review Chart Review: Acceptable Risk for Surgery History Surgery Operation Date: 12/22/24 07:30 Proposed Procedures p C4-C5, C5-C6 Anterior Cervical Disectomy and Fusion, Spinal Cord Monitoring - Alonzo Peterson MD Height/Weight Height: 5 ft 10 in Weight: 113.8 kg Allergies Allergy/AdvReac Type Severity Reaction Status Date / Time JOSE FRANCISCO Inhibitors Allergy Intermediate COUGH Verified 10/12/24 13:55 lisinopril Allergy Intermediate RESPIRATORY Unverified 10/12/24 13:55 PROBLEMS, COUGH cat dander Allergy Unknown watering Verified 10/12/24 13:55 eyes Medications Home Medications Medication Instructions Recorded Confirmed Last Taken losartan 100 1 tab PO DAILY #30 tabs 12/02/24 12/17/24 Unknown mg-hydrochlorothiazide 25 mg tablet tirzepatide (weight loss) 12.5 12.5 mg (0.5 mL) subcut Q7D #2 mL 12/03/24 12/17/24 Unknown mg/0.5 mL subcutaneous pen injector Active Medications Generic Name Dose Route Start Last Admin Trade Name Freq PRN Reason Stop Dose Admin Acetaminophen 650 mg 12/18/24 04:54 12/22/24 02:01 Acetaminophen 325 Mg Tab PO 01/17/25 04:53 650 mg QID PRN Administration pain/fever Docusate Sodium 100 mg 12/18/24 21:00 12/21/24 20:01 Docusate Sodium 100 Mg Cap PO 01/17/25 20:59 Not Given BID FRANCIA Famotidine 20 mg 12/19/24 16:30 12/21/24 08:23 Famotidine 20 Mg Tab PO 01/18/25 16:29 20 mg QAM FRANCIA Administration Hydrochlorothiazide 25 mg 12/20/24 09:00 12/21/24 09:17 Hydrochlorothiazide 25 Mg Tab PO 01/19/25 08:59 25 mg QAM FRANCIA Administration Hydromorphone HCl 1 mg 12/20/24 00:05 12/22/24 02:03 Hydromorphone Inj 1 Mg/Ml Syringe IV 01/03/25 00:04 1 mg Q4H PRN Administration Pain Lactated Ringer's 1,000 mls @ 15 mls/hr 12/22/24 06:15 12/22/24 06:30 Lr IV 12/23/24 06:14 15 mls/hr .Q24H FRANCIA Administration Losartan Potassium 100 mg 12/18/24 21:00 12/21/24 20:02 Losartan Potassium 50 Mg Tab PO 01/17/25 20:59 100 mg HS FRANCIA Administration Magnesium Hydroxide 30 ml 12/20/24 16:24 12/20/24 17:49 Magnesium Hydroxide Susp 30 Ml Udc PO 01/19/25 16:23 30 ml BID PRN Administration constipation Nortriptyline HCl 25 mg 12/20/24 21:00 12/21/24 20:02 Nortriptyline Hcl 25 Mg Cap PO 01/19/25 20:59 25 mg HS FRANCIA Administration Polyethylene Glycol 17 gm 12/19/24 09:00 12/21/24 08:31 Polyethylene (Miralax) 17 Gm Pack PO 01/18/25 08:59 17 gm DAILY FRANCIA Administration Pregabalin 75 mg 12/20/24 14:00 12/21/24 20:02 Pregabalin 75 Mg Cap PO 01/19/25 13:59 75 mg TID FRANCIA Administration Tapentadol 50 mg 12/20/24 10:59 12/21/24 22:23 Tapentadol Hcl 50 Mg Tab PO 01/03/25 10:58 50 mg Q4H PRN Administration Pain Tizanidine HCl 4 mg 12/18/24 09:37 12/21/24 22:24 Tizanidine Hcl 4 Mg Tablet PO 01/17/25 06:01 4 mg TID PRN Administration spasm Zinc Acetate/Diphenhydramine 1 appln 12/20/24 13:34 12/21/24 06:06 Diphenhydramine 2%/Zinc 0.1% Cream 28.4gm Tube EXT 01/19/25 13:33 1 appln QID PRN Administration itching, skin rash NPO Date Last Intake of Fluids: 12/21/24 Time Last Intake of Fluids: 19:00 Date Last Intake of Solids: 12/21/24 Time Last Intake of Solids: 19:00 Past Medical History Medical History (Updated 12/22/24 @ 07:18 by Jaime Murillo MD) Factor V Leiden Cervical radiculopathy HTN (hypertension) Hernia, inguinal Past Family History Family History Mother Hypertension Father Seizures Combined hyperlipidemia Sister Factor II deficiency Factor 5 Leiden mutation, heterozygous Other No pertinent family history Past Surgical History Surgical History H/O laminectomy Social History Smoking Status: Former smoker Smoking cigarettes per day: occasional Do You Dip or Chew Tobacco: No Hx Alcohol Use: Yes Alcohol type: beer, wine and hard liquor alcohol intake frequency: holidays/special occasions only Hx Substance Use: No Physical Exam Vital Signs Last Vital Signs Temp 36.8 C 12/22/24 06:25 Pulse 71 12/22/24 06:25 Resp 20 12/22/24 06:25 BP 136/89 12/22/24 06:25 Pulse Ox 95 12/22/24 06:25 O2 Del Method Room Air 12/22/24 06:25 Testing Laboratory Results 12/18/24 00:27 12/22/24 05:44 Hemoglobin A1c 5.3 % (4.5-5.6) 12/18/24 00:27 Blood Type O Positive 12/22/24 05:44 Antibody Screen NEGATIVE 12/22/24 05:44 Echocardiogram Date: 03/10/25 EF: 60-65% LV Function: normal Other Findings: + LVH (mild) Valvular Disease: + no significant valvular disease
[2024-12-22] MEDS ORDERED: ATROPINE SULFATE 0.1 MG/ML 10ML SYR IV PRN (07:19)
[2024-12-22] MEDS ORDERED: PROMETHAZINE HCL 6.25 MG in SODIUM CHLORIDE 0.9% 50 ML IV PRN (07:19)
[2024-12-22] MEDS ORDERED: LABETALOL HCL IV 5 MG/ML 20ML IV PRN (07:19)
[2024-12-22] MEDS ORDERED: ONDANSETRON INJ 2 MG/ML 2 ML VIAL IV PRN (07:19)
--- NOTE | 2024-12-22 07:20 | History & Physical Bridge Note ---
Date of Service December 22, 2024 History & Physical Bridge Note I have examined the patient, reviewed the History & Physical and in the interval since the performance of the History & Physical I have noted the following changes of clinical significance: no changes noted
[2024-12-22] MEDS: ceFAZolin 2000MG 2,000 MG/15 ML SYR IV ONE ×2 (07:30→11:30)
[2024-12-22] MEDS: ceFAZolin 1000MG 1,000 MG/7.5 ML SYR IV ONE (08:30)
[2024-12-22] MEDS ORDERED: PHENYLEPHRINE 100MCG/ML 5ML SYR ONE (09:20)
[2024-12-22] MEDS: FLOSEAL HEMOSTATIC MATRIX 10ML TOP ONE ×2 (10:49→11:22)
[2024-12-22] MEDS ORDERED: ceFAZolin 330 MG/ML 1 GM VIAL ONE ×2 (11:21→11:26)
[2024-12-22] MEDS ORDERED: HYDROmorphone INJ 2 MG/ML SYR/VIAL ONE (11:31)
[2024-12-22] MEDS: VANCOMYCIN HCL 1000MG/20ML VIAL ONE (11:35)
--- NOTE | 2024-12-22 11:56 | Post Operative Brief Note ---
PG Immediate Post Op with CF Date of Surgery December 22, 2024 Pre & Post Diagnosis Operation Date: 12/22/24 07:30 Pre-Op Diagnosis: (1) Cervical disc herniation (2) Cervical stenosis of spine (3) Cervical radicular pain (4) Herniated nucleus pulposus, C4-5 (5) Herniated nucleus pulposus, C5-6 right Post-Op Diagnosis: (1) Cervical disc herniation (2) Cervical stenosis of spine (3) Cervical radicular pain (4) Herniated nucleus pulposus, C4-5 (5) Herniated nucleus pulposus, C5-6 right I identified the patient and participated in the time-out.: Yes Procedure Operation Date: 12/22/24 07:30 Actual Procedures p C4-C5, C5-C6 Anterior Cervical Disectomy and Fusion, Spinal Cord Monitoring(Not Applicable) - Alonzo Peterson MD Surgeon Alonzo Peterson MD Criminal Defense Lawyer Ronni Rosales PA-C Estimated Blood Loss 25 Findings Consistent with Post-Op Diagnosis Specimens Specimen Description: No specimen per surgeon Drains Thornton Catheter (Inserted by Holly Silverio RN prior to procedure without difficulty, clear yellow urine noted. To be removed at end of procedure.) and Brian-Webster Drain Disposition Disposition: Recovery Room
--- NOTE | 2024-12-22 11:57 | Fluoroscopy Report ---
FL cervical 2-3V CLINICAL HISTORY: acdf c4-c6 COMPARISON STUDY: None FLUOROSCOPY TIME: 77 seconds FLUOROSCOPY IMAGES: 4 EXPOSURE DOSE: 45 mGy FINDINGS: Fluoroscopy was provided for cervical spine fusion. IMPRESSION: Intraoperative fluoroscopy. ACT 112: Negative or not required by law. Electronically signed by: Luiz Worthy M.D. 12/22/2024 11:56 AM
--- NOTE | 2024-12-22 12:08 | Operative Report ---
PG Post Operative Report Pre & Post Diagnosis Pre-Op Diagnosis: (1) Cervical stenosis of spine (2) Cervical radicular pain (3) Herniated nucleus pulposus, C4-5 (4) Herniated nucleus pulposus, C5-6 right Post-Op Diagnosis: (1) Cervical stenosis of spine (2) Cervical radicular pain (3) Herniated nucleus pulposus, C4-5 (4) Herniated nucleus pulposus, C5-6 right I identified the patient and participated in the time-out.: Yes Procedure 1. C4-5 anterior cervical decompression and fusion (34380). 2. C4-5 interbody spacer placement with arthrodesis ([id number]). 3. C5-6 anterior cervical decompression and fusion (82855). 4. C5-6 interbody spacer placement with arthrodesis (75045). 5. C4, C5, C6 instrumentation (separate from interbody spacer) ([id number]). 6. Allograft for Spinal Fusion Implants: Camber Spira Cage, Choice Spine Ambassador Plate Surgeon Alonzo Peterson MD Sugar Laboratory Assistant Ronni Rosales PA-C Estimated Blood Loss 25 Findings Consistent with Post-Op Diagnosis Specimens None Drains Santo Anesthesia Type General Complications none Disposition Disposition: Recovery Room Indications The patient has suffered from severe and unrelenting symptoms despite conservative management. After discussing the benefits and risks of continued conservative management versus operative intervention, the patient elected to proceed with surgery. Description of Procedure Informed consent was obtained prior to the procedure. In the preoperative holding area, the patient's anterior neck was marked with a marking pen. The patient was taken to the operating room and anesthesia was initiated. The patient was placed supine on a regular operating room table. The neck was placed in a neutral position. All prominences were carefully padded. The anterior neck was prepped and draped in typical sterile fashion. Antibiotics were administered. A timeout was performed. Neuromonitoring was utilized, including somatosensory evoked potentials, running electromyography and motor evoked potentials. These remained stable throughout the case. Additionally, a discussion was held with anesthesia regarding blood pressure management. Anesthesia was instructed to maintain mean arterial pressures at preanesthetic baseline at all times to ensure cord perfusion. A #10 blade was used to incise the skin. Bovie electrocautery was used to maintain meticulous hemostasis as dissection was completed through the subcutaneous and platysma. The interval between the sternocleidomastoid and the strap musculature was identified and bluntly dissected. The carotid sheath was palpated, retracted laterally and protected. The anterior cervical spine was identified and exposed. Hemostat clamped on the longus colli at the C5-6 level. The longus colli were carefully elevated off the anterior spine laterally. Care was taken to not dissect too laterally so as to protect the sympathetic chains. Anterior osteophytes were removed. Sayner pins were placed and a small amount of distraction was applied across the C5-6 disc space. A total diskectomy along with bilateral foraminotomies were completed. The posterior longitudinal ligament was taken down. The central thecal sac and the bilateral C6 exiting nerve roots were confirmed to be completely decompressed. The endplates were prepared. An interbody spacer was selected and implanted after spacer was packed with allograft. The caspar pins were moved and a small amount of distraction was applied across the C4-5 disc space. A total diskectomy along with bilateral foraminotomies were completed. The posterior longitudinal ligament was taken down. The central thecal sac and the bilateral C5 exiting nerve roots were confirmed to be completely decompressed. The endplates were prepared. An interbody spacer was selected, packed with allograft and implanted. An anterior cervical plate was selected and implanted. Screws were placed into the bodies of C4, C5 and C6. The screws were locked into the plate. X-rays were taken and confirmed appropriate spacer and hardware position. The wound was thoroughly irrigated. Meticulous hemostasis was achieved. A single drain was placed deep. The platysma and subcutaneous were closed using braided, absorbable suture. The cutaneous was closed using a monofilament, absorbable suture. A sterile dressing was placed. At the end of the case, all instrument and sponge counts were correct. The patient was awakened from anesthesia without complication and taken to the PACU in stable condition. I attest to the content of the Intraoperative Record and any orders documented therein. Any exceptions are noted below.
[2024-12-22] MEDS: HYDROmorphone INJ 1 MG/ML SYRINGE IV PRN (12:39)
[2024-12-22] MEDS: ERYTHROMYCIN OP OINT 5 MG/GM 3.5 GM TUBE OP ONE ×3 (12:52→17:03)
[2024-12-22] MEDS: KETOROLAC 0.5% OP SOLN 5 ML BTL OP SCH (12:52)
--- NOTE | 2024-12-22 13:15 | Anesthesiology Progress Note ---
Date of Service December 22, 2024 Anesthesia Post Procedure Vital Signs Vital Signs: Temp Pulse Pulse Resp BP Pulse Ox O2 Del Method 12/22/24 13:10 83 13 157/93 H 96 Nasal Cannula 12/22/24 13:00 92 H 13 141/99 H 95 Nasal Cannula 12/22/24 12:50 85 12 156/104 H 95 Nasal Cannula 12/22/24 12:40 80 12 152/104 H 97 Oxymask 12/22/24 12:30 84 16 160/100 H 98 Oxymask 12/22/24 12:20 85 12 116/90 98 Oxymask 12/22/24 12:10 92 H 12 138/93 96 Oxymask 12/22/24 12:04 36.4 C L 89 13 122/77 93 Oxymask 12/22/24 06:25 36.8 C 71 20 136/89 95 Room Air 12/21/24 20:09 37.1 C 90 18 142/94 H 93 Room Air 12/21/24 14:13 36.6 C 75 20 142/84 H 96 Room Air O2 Flow Rate 12/22/24 13:10 2 12/22/24 13:00 2 12/22/24 12:50 2 12/22/24 12:40 4 12/22/24 12:30 4 12/22/24 12:20 10 12/22/24 12:10 10 12/22/24 12:04 10 12/22/24 06:25 12/21/24 20:09 12/21/24 14:13 Pain Intensity Neck: Pain Intensity: 5 Right Neck: Pain Intensity: 5 Transfer of Care Handoff Completed per policy Notes Mental Status: alert / awake / arousable Patient Amnestic to Procedure: Yes Nausea / Vomiting: adequately controlled Pain: adequately controlled Airway Patency, RR, SpO2: stable & adequate BP & HR: stable & adequate Hydration State: stable & adequate Anesthetic Complications: no major complications apparent Notes: after in PACU for a bit started complaining of his eyes burning. given erythromycin and toradol drops.
[2024-12-22] MEDS ORDERED: VANCOMYCIN CONSULT ACTIVE PRN (13:42)
[2024-12-22] MEDS ORDERED: dexAMETHasone 8 MG in SYRINGE 0 ML IV PRN (13:42)
[2024-12-22] MEDS ORDERED: RACEPINEPHRINE 2.25% NEBU SOLN 0.5 ML VIAL INH PRN (13:42)
[2024-12-22] MEDS: CEROVITE ADV FORMULA TAB PO SCH (14:23)
--- NOTE | 2024-12-22 15:07 | Hospitalist Progress Note ---
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 He denies any fever/chills/bowel and bladder incontinence. He is being managed for the following: Cervical radiculopathy Patient presents with increasing neck pain associated with RUE pain. See above. C-spine MRI: Multilevel cervical disc bulge/osteophyte complexes with foraminal and spinal canal stenosis, more evident at C5-C6 disc. Straightening of cervical spine. Continue with steroid, opioids pain medication, Lyrica. [facility] on board, appreciate recommendation. Avoid NSAIDs. Plan for sx cain, npo midnight. Status post C4-C5, C5-C6 anterior cervical discectomy and fusion He denies any significant neck pain following the procedure and does not have any neurological symptoms involving the extremities Pain is reasonably controlled He remains otherwise medically stable Corneal abrasion Following scratching his eyes following anesthesia Has been getting NSAIDs drop for pain and also started on erythromycin ointment to prevent infection Hypokalemia likely secondary to diuretic Rx , c/w home hctz and monitor closely. Monitor and replete electrolytes. Other chronic medical conditions: Continue with/resume home meds as and when able. hypertension, stable heterozygous factor V Leiden abnormality, significant family history without personal history of blood clots as per patient account. Jerri gamez, appreciate recs. prediabetes, hemoglobin A1c of 5.8 in 2022 . a1c this admission 5.3 past tobacco abuse DVT prophylaxis. SCDs re: possible procedure Full code Text document was generated using SET voice recognition software. It may contain grammatical or spelling errors. Kindly contact undersigned for clarification of any documentation item in question. Admission and Anticipated Discharge Date Admission Date: December 19, 2024 Subjective 12/22/2024 The patient was seen and examined in medical floor He is status post C4-C5, C5-C6 anterior cervical discectomy and fusion He has minimal pain in the neck and does not have any numbness and or tingling involving any of the extremities He has corneal abrasion following scratching the eye after anesthesia Review of Systems Review of Systems: all systems reviewed and are unremarkable except as noted below Physical Exam Physical Exam: Lying in bed without any acute distress Constitutional: well developed, well nourished, + ill appearing and + obese Eyes: Covered and closed ENMT: external ear and nose normal, oropharynx normal Neck: trachea midline, no thyromegaly Respiratory: no respiratory distress Auscultation: lungs clear to auscultation bilaterally Cardiovascular: Rate/Rhythm: regular rate and regular rhythm; not tachycardic Heart Sounds: normal S1 and normal S2; no murmur Extremities: no edema Gastrointestinal (Abdomen): Inspection/Auscultation: normal bowel sounds; abdomen not distended Percussion/Palpation: abdomen soft; abdomen nontender Musculoskeletal: No acute arthritis involving any of the joint Neurologic: normal touch/pain/proprioception and moves all extremities; no focal motor deficits Lymphatic: no cervical or axillary lymphadenopathy Results & Data Results & Data Vital Signs (Past 12 Hours) Vital Signs Temp Pulse Pulse Resp BP Pulse Ox O2 Del Method 12/22/24 14:40 37 C 78 18 131/82 96 Nasal Cannula 12/22/24 14:14 37 C 84 20 137/87 96 Nasal Cannula 12/22/24 13:46 37.7 C H 88 22 141/90 H 95 Nasal Cannula 12/22/24 13:20 80 12 149/96 H 95 Nasal Cannula 12/22/24 13:10 83 13 157/93 H 96 Nasal Cannula 12/22/24 13:00 92 H 13 141/99 H 95 Nasal Cannula 12/22/24 12:50 85 12 156/104 H 95 Nasal Cannula 12/22/24 12:40 80 12 152/104 H 97 Oxymask 12/22/24 12:30 84 16 160/100 H 98 Oxymask 12/22/24 12:20 85 12 116/90 98 Oxymask 12/22/24 12:10 92 H 12 138/93 96 Oxymask 12/22/24 12:04 36.4 C L 89 13 122/77 93 Oxymask 12/22/24 06:25 36.8 C 71 20 136/89 95 Room Air O2 Flow Rate 12/22/24 14:40 2 12/22/24 14:14 2 12/22/24 13:46 2 12/22/24 13:20 2 12/22/24 13:10 2 12/22/24 13:00 2 12/22/24 12:50 2 12/22/24 12:40 4 12/22/24 12:30 4 12/22/24 12:20 10 12/22/24 12:10 10 12/22/24 12:04 10 12/22/24 06:25 Laboratory Results BMP 12/22/24 05:44 Sodium 136 Potassium 3.5 Chloride 99 Carbon Dioxide 30 BUN 14 Creatinine 1.02 Glucose 88 Calcium 9.5 Medications Administered Current Inpatient Medications Acetaminophen (Acetaminophen 325 Mg Tab) 650 mg PO QID PRN PRN Reason: pain/fever Stop: 01/17/25 04:53 Last Admin: 12/22/24 02:01 Dose: 650 mg Atropine Sulfate (Atropine Sulfate 0.1 Mg/Ml 10ml Syr) 0.5 mg IV Q1M PRN PRN Reason: PACU Use-HR<40 &/or Bradycardi Stop: 12/22/24 15:19 Docusate Sodium (Docusate Sodium 100 Mg Cap) 100 mg PO BID FRANCIA Stop: 01/17/25 20:59 Last Admin: 12/22/24 14:23 Dose: Not Given Epinephrine (Racepinephrine 2.25% Nebu Soln 0.5 Ml Vial) 0.5 ml INH NOW PRN PRN Reason: If stridor present Erythromycin (Erythromycin Op Oint 5 Mg/Gm 3.5 Gm Tube) 1 appln OP QID ONE Stop: 12/22/24 17:01 Famotidine (Famotidine 20 Mg Tab) 20 mg PO QAM FRANCIA Stop: 01/18/25 16:29 Last Admin: 12/21/24 08:23 Dose: 20 mg Hydrochlorothiazide (Hydrochlorothiazide 25 Mg Tab) 25 mg PO QAM FRANCIA Stop: 01/19/25 08:59 Last Admin: 12/21/24 09:17 Dose: 25 mg Hydromorphone HCl (Hydromorphone Inj 1 Mg/Ml Syringe) 1 mg IV Q4H PRN PRN Reason: Pain Stop: 01/03/25 00:04 Last Admin: 12/22/24 14:08 Dose: 1 mg Promethazine HCl (Phenergan) 12.5 mg in 50.5 mls @ 202 mls/hr IV Q6H PRN PRN Reason: Nausea And Vomiting Stop: 01/17/25 04:53 Promethazine HCl 6.25 mg/ (Sodium Chloride) 50.25 mls @ 204 mls/hr IV ONCE PRN PRN Reason: PACU Use Only-Nausea/Vomiting Stop: 12/22/24 15:20 Dexamethasone 8 mg/ Syringe 2 mls @ 1 mls/min IV NOW PRN PRN Reason: If stridor present Cefazolin Sodium (Ancef 2000mg) 2,000 mg in 15 mls @ 3.75 mls/min IV Q8H FRANCIA; Protocol Stop: 12/23/24 00:33 Vancomycin HCl 1,750 mg/ (Sodium Chloride) 500 mls @ 200 mls/hr IV Q12H FRANCIA Stop: 12/23/24 01:29 Ketorolac Tromethamine (Ketorolac 0.5% Op Soln 5 Ml Btl) 2 drops OP [id number] FRANCIA Stop: 01/21/25 12:44 Last Admin: 12/22/24 12:52 Dose: 2 drops Labetalol HCl (Labetalol Hcl Iv 5 Mg/Ml 20ml) 5 mg IV Q5M PRN PRN Reason: PACU Use-SBP>160 or DBP>100 Stop: 12/22/24 15:20 Losartan Potassium (Losartan Potassium 50 Mg Tab) 100 mg PO HS [facility] Stop: 01/17/25 20:59 Last Admin: 12/21/24 20:02 Dose: 100 mg Magnesium Hydroxide (Magnesium Hydroxide Susp 30 Ml Udc) 30 ml PO BID PRN PRN Reason: constipation Stop: 01/19/25 16:23 Last Admin: 12/20/24 17:49 Dose: 30 ml Melatonin (Melatonin 3 Mg Tab) 6 mg PO HS PRN PRN Reason: Sleep Stop: 01/20/25 22:32 Multivitamins/Minerals (Cerovite Adv Formula Tab) 1 tab PO QAM [facility] Stop: 01/21/25 08:59 Last Admin: 12/22/24 14:23 Dose: Not Given Nortriptyline HCl (Nortriptyline Hcl 25 Mg Cap) 25 mg PO HS [facility] Stop: 01/19/25 20:59 Last Admin: 12/21/24 20:02 Dose: 25 mg Ondansetron HCl (Ondansetron Inj 2 Mg/Ml 2 Ml Vial) 4 mg IV ONCE PRN PRN Reason: PACU Use Only-Nausea/Vomiting Stop: 12/22/24 15:20 Oxycodone/Acetaminophen (Oxycodone/Acetaminophen 5mg/325mg Tab) 1 - 2 tab PO Q4H PRN PRN Reason: Pain & Pre PT Stop: 01/05/25 13:41 Polyethylene Glycol (Polyethylene (Miralax) 17 Gm Pack) 17 gm PO DAILY FRANCIA Stop: 01/18/25 08:59 Last Admin: 12/22/24 14:23 Dose: Not Given Pregabalin (Pregabalin 75 Mg Cap) 75 mg PO TID FRANCIA Stop: 01/19/25 13:59 Last Admin: 12/22/24 14:05 Dose: Not Given Tizanidine HCl (Tizanidine Hcl 4 Mg Tablet) 4 mg PO TID PRN PRN Reason: spasm Stop: 01/17/25 06:01 Last Admin: 12/21/24 22:24 Dose: 4 mg Zinc Acetate/Diphenhydramine (Diphenhydramine 2%/Zinc 0.1% Cream 28.4gm Tube) 1 appln EXT QID PRN PRN Reason: itching, skin rash Stop: 01/19/25 13:33 Last Admin: 12/21/24 06:06 Dose: 1 appln
[2024-12-22] MEDS: POTASSIUM CHLORIDE CRTAB 20 MEQ TABCR PO STA (15:44)
[2024-12-22] MEDS: oxyCODONE/ACETAMINOPHEN 5mg/325mg TAB PO PRN (15:50)
[2024-12-22] MEDS: ceFAZolin 2000MG 2,000 MG/15 ML SYR IV SCH (17:02)
[2024-12-22] MEDS: LORazepam 0.5 MG TAB PO STA (19:43)
[2024-12-22] MEDS: ERYTHROMYCIN OP OINT 5 MG/GM 3.5 GM TUBE OP SCH (20:44)
[2024-12-22] MEDS: VANCOMYCIN HCL 1,750 MG in SODIUM CHLORIDE 0.9% 500 ML IV SCH (22:23)
[2024-12-23 07:15] LABS: Basophils % (auto) 0.1 %; Eosinophils % (auto) 0.6 %; Hematocrit (blood only) 41.4 % (42.0-52.0); Hemoglobin 14.9 g/dl (14.0-18.0); Immature Granulocytes % (auto) 0.5 %; Lymphocytes % (auto) 25.2 %; Mean Corpuscular Hemoglobin 31.6 pg (25.0-34.0); Mean Corpuscular Volume 87.7 fL (80.0-100.0); Mean Platelet Volume 10.6 fL (9.4-12.4); Monocytes % (auto) 12.5 %; Neutrophils % (auto) 61.1 %; Platelet Count 220 K/uL (130-400); RDW Standard Deviation 38.9 fL (36.4-46.3); Red Blood Count 4.72 M/uL (4.70-6.10); White Blood Count 11.07 K/ul (4.8-10.8)
[2024-12-23 07:16] LABS: Basophils # (auto) 0.01 K/uL (0.00-0.20); Eosinophils # (auto) 0.07 K/uL (0.00-0.50); Immature Granulocytes # (auto) 0.06 K/uL (0.01-0.20); Lymphocytes # (auto) 2.79 K/uL (1.20-3.40); Monocytes # (auto) 1.38 K/uL (0.11-0.59); Neutrophils # (auto) 6.76 K/uL (1.40-6.50)
[2024-12-23 07:29] LABS: BUN Creatinine Ratio 16.7 (10-20); Calcium 8.9 mg/dl (8.6-10.3); Creatinine Clr Calc Pharmacy 140.3 ml/min; Potassium 3.4 mmol/L (3.5-5.1)
[2024-12-23 07:44] VITALS: BP 129/78; TEMP 98.1
--- NOTE | 2024-12-23 08:16 | Orthopedic Progress Note ---
Date of Service December 23, 2024 Assessment & Plan (1) S/P cervical spinal fusion: dc drain diet as tolerated pain control with percocet, tizanidine PRN ok for discharge from spine standpoint, will send in pain meds/muscle relaxer follow up in 2 weeks in office Subjective s/p ACDF, moderate dysphagia but swallowing soft foods,no arm pain. Corneal abrasions improving with drops. Review of Systems All systems reviewed & are unremarkable except as noted in HPI & below. Physical Exam 5/5 C5-T1 myotomes SILT C5-T1 dermatomes drain minimal output Results & Data Results & Data Laboratory Results . Diagnostic Findings . PG Care Time/CCT Total # of Minutes Spent Total Time Spent with Patient: Total time spent is greater than 50% in coordination of care (as documented) at patient's floor/unit and/or counseling patient: Coding Level of Care Code 95547 Post Operative Follow-Up Diagnoses S/P cervical spinal fusion Z98.1
[2024-12-23] MEDS: POTASSIUM CHLORIDE CRTAB 20 MEQ TABCR PO STA (08:39)
[2024-12-23 10:51] VITALS: PULSE 72; RESP 16; O2SAT 97
--- NOTE | 2024-12-23 11:24 | Hospitalist Progress Note ---
Date of Service December 23, 2024 Assessment & Plan (1) Cervical radicular pain: Plan 44-year-old male with PMH of HTN, HLD, GERD, mild CAMILO, heterozygous factor V Leiden abnormality, prediabetes, anxiety disorder, past tobacco abuse with a history of chronic neck pain for about 25 years following a football injury presented this time with progressive worsening of neck pain over the last few days RELASTER after shoveling snow at home associated with some radiation to the right arm. He denies any fever/chills/bowel and bladder incontinence. He is being managed for the following: Cervical radiculopathy Patient presents with increasing neck pain associated with RUE pain. See above. C-spine MRI: Multilevel cervical disc bulge/osteophyte complexes with foraminal and spinal canal stenosis, more evident at C5-C6 disc. Straightening of cervical spine. Continue with steroid, opioids pain medication, Lyrica. Orthospine on board, appreciate recommendation. Avoid NSAIDs. Plan for sx cain, npo midnight. Status post C4-C5, C5-C6 anterior cervical discectomy and fusion He denies any significant neck pain following the procedure and does not have any neurological symptoms involving the extremities Pain is reasonably controlled He remains otherwise medically stable Denies any significant symptoms and will be discharged home this afternoon Corneal abrasion Following scratching his eyes following anesthesia Has been getting NSAIDs drop for pain and also started on erythromycin ointment to prevent infection Denies any significant pain in the eyes and will finish the antibiotic as advised Hypokalemia likely secondary to diuretic Rx , c/w home hctz and monitor closely. Monitor and replete electrolytes. Potassium was replaced Other chronic medical conditions: Continue with/resume home meds as and when able. hypertension, stable heterozygous factor V Leiden abnormality, significant family history without personal history of blood clots as per patient account. Jerri gamez, appreciate recs. prediabetes, hemoglobin A1c of 5.8 in 2022 . a1c this admission 5.3 past tobacco abuse DVT prophylaxis. SCDs re: possible procedure Full code Text document was generated using [employer] voice recognition software. It may contain grammatical or spelling errors. Kindly contact undersigned for clarification of any documentation item in question. Admission and Anticipated Discharge Date Admission Date: December 19, 2024 Subjective 12/22/2024 The patient was seen and examined in medical floor He is status post C4-C5, C5-C6 anterior cervical discectomy and fusion He has minimal pain in the neck and does not have any numbness and or tingling involving any of the extremities He has corneal abrasion following scratching the eye after anesthesia 12/23/2024 The patient was seen and examined in medical floor He has minimal pain in the neck and in both shoulders but does not have any numbness and or tingling in the extremities He has been ambulating in the room and in the hallway He can be discharged as per the orthopedic surgeon Review of Systems Review of Systems: all systems reviewed and are unremarkable except as noted below Physical Exam Physical Exam: Sitting on a chair without any acute distress Constitutional: well developed, well nourished, + ill appearing and + obese ENMT: external ear and nose normal, oropharynx normal Neck: trachea midline, no thyromegaly Respiratory: no respiratory distress Auscultation: lungs clear to auscultation bilaterally Cardiovascular: Rate/Rhythm: regular rate and regular rhythm; not tachycardic Heart Sounds: normal S1 and normal S2; no murmur Extremities: no edema Gastrointestinal (Abdomen): Inspection/Auscultation: normal bowel sounds; abdomen not distended Percussion/Palpation: abdomen soft; abdomen nontender Neurologic: normal touch/pain/proprioception and moves all extremities; no focal motor deficits Lymphatic: no cervical or axillary lymphadenopathy Results & Data Results & Data Vital Signs (Past 12 Hours) Vital Signs Temp Pulse Resp BP Pulse Ox O2 Del Method 12/23/24 10:50 72 16 97 Room Air 12/23/24 07:53 79 14 96 Room Air 12/23/24 07:43 36.7 C 87 18 129/78 94 Room Air 12/23/24 04:42 37.0 C 78 16 136/78 95 Room Air 12/23/24 03:04 84 18 94 Room Air 12/23/24 02:53 36.6 C 82 16 130/89 96 Room Air 12/23/24 00:58 36.8 C 77 16 133/66 98 Room Air Laboratory Results Short CBC 12/23/24 Range/Units 06:42 WBC 11.07 H (4.8-10.8) K/ul Hgb 14.9 (14.0-18.0) g/dl Hct 41.4 L (42.0-52.0) % Plt Count 220 (130-400) K/uL BMP 12/23/24 06:42 Sodium 136 Potassium 3.4 L Chloride 100 Carbon Dioxide 30 BUN 14 Creatinine 0.84 Glucose 94 Calcium 8.9 Medications Administered Current Inpatient Medications Acetaminophen (Acetaminophen 325 Mg Tab) 650 mg PO QID PRN PRN Reason: pain/fever Stop: 01/17/25 04:53 Last Admin: 12/22/24 02:01 Dose: 650 mg Docusate Sodium (Docusate Sodium 100 Mg Cap) 100 mg PO BID [facility] Stop: 01/17/25 20:59 Last Admin: 12/23/24 08:31 Dose: 100 mg Epinephrine (Racepinephrine 2.25% Nebu Soln 0.5 Ml Vial) 0.5 ml INH NOW PRN PRN Reason: If stridor present Erythromycin (Erythromycin Op Oint 5 Mg/Gm 3.5 Gm Tube) 1 appln OP QID FRANCIA Stop: 01/01/25 20:59 Last Admin: 12/23/24 08:30 Dose: 1 appln Famotidine (Famotidine 20 Mg Tab) 20 mg PO QAM [facility] Stop: 01/18/25 16:29 Last Admin: 12/23/24 08:31 Dose: 20 mg Hydrochlorothiazide (Hydrochlorothiazide 25 Mg Tab) 25 mg PO QAM [facility] Stop: 01/19/25 08:59 Last Admin: 12/23/24 08:31 Dose: 25 mg Hydromorphone HCl (Hydromorphone Inj 1 Mg/Ml Syringe) 1 mg IV Q4H PRN PRN Reason: Pain Stop: 01/03/25 00:04 Last Admin: 12/23/24 06:33 Dose: 1 mg Promethazine HCl (Phenergan) 12.5 mg in 50.5 mls @ 202 mls/hr IV Q6H PRN PRN Reason: Nausea And Vomiting Stop: 01/17/25 04:53 Dexamethasone 8 mg/ Syringe 2 mls @ 1 mls/min IV NOW PRN PRN Reason: If stridor present Ketorolac Tromethamine (Ketorolac 0.5% Op Soln 5 Ml Btl) 2 drops OP [id number] [facility] Stop: 01/21/25 12:44 Last Admin: 12/23/24 08:29 Dose: 2 drops Lorazepam (Lorazepam 0.5 Mg Tab) 0.5 mg PO TID PRN PRN Reason: Anxiety Stop: 01/21/25 19:30 Losartan Potassium (Losartan Potassium 50 Mg Tab) 100 mg PO HS FRANCIA Stop: 01/17/25 20:59 Last Admin: 12/22/24 20:45 Dose: 100 mg Magnesium Hydroxide (Magnesium Hydroxide Susp 30 Ml Udc) 30 ml PO BID PRN PRN Reason: constipation Stop: 01/19/25 16:23 Last Admin: 12/20/24 17:49 Dose: 30 ml Melatonin (Melatonin 3 Mg Tab) 6 mg PO HS PRN PRN Reason: Sleep Stop: 01/20/25 22:32 Multivitamins/Minerals (Cerovite Adv Formula Tab) 1 tab PO QAM FRANCIA Stop: 01/21/25 08:59 Last Admin: 12/23/24 08:31 Dose: 1 tab Nortriptyline HCl (Nortriptyline Hcl 25 Mg Cap) 25 mg PO HS FRANCIA Stop: 01/19/25 20:59 Last Admin: 12/22/24 20:45 Dose: 25 mg Oxycodone/Acetaminophen (Oxycodone/Acetaminophen 5mg/325mg Tab) 1 - 2 tab PO Q4H PRN PRN Reason: Pain & Pre PT Stop: 01/05/25 13:41 Last Admin: 12/23/24 11:00 Dose: 2 tab Polyethylene Glycol (Polyethylene (Miralax) 17 Gm Pack) 17 gm PO DAILY FRANCIA Stop: 01/18/25 08:59 Last Admin: 12/23/24 08:24 Dose: Not Given Pregabalin (Pregabalin 75 Mg Cap) 75 mg PO TID FRANCIA Stop: 01/19/25 13:59 Last Admin: 12/23/24 08:31 Dose: 75 mg Tizanidine HCl (Tizanidine Hcl 4 Mg Tablet) 4 mg PO TID PRN PRN Reason: spasm Stop: 01/17/25 06:01 Last Admin: 12/23/24 04:40 Dose: 4 mg Zinc Acetate/Diphenhydramine (Diphenhydramine 2%/Zinc 0.1% Cream 28.4gm Tube) 1 appln EXT QID PRN PRN Reason: itching, skin rash Stop: 01/19/25 13:33 Last Admin: 12/21/24 06:06 Dose: 1 appln
--- NOTE | 2024-12-23 11:57 | XRay Report ---
XR cervical spine 2 or 3V CLINICAL HISTORY: post-op spine surgery COMPARISON STUDY: None FINDINGS: Anterior plate screw fusion with interbody devices from C4 through C6 shows no hardware com plication. There is expected prevertebral soft tissue swelling and postoperative drain. IMPRESSION: Unremarkable postoperative exam. ACT 112: Negative or not required by law. Electronically signed by: Luiz Worthy M.D. 12/23/2024 11:55 AM
[2024-12-23] MEDS: LORazepam 0.5 MG TAB PO PRN (12:54)
--- NOTE | 2024-12-23 18:34 | Discharge Summary ---
Date of Service December 23, 2024 Admission HPI Per Admitting Provider History obtained from patient and records. Medical history significant for hypertension, hyperlipidemia, GERD, mild CAMILO, heterozygous factor V Leiden abnormality, prediabetes, anxiety disorder, past tobacco abuse. Last overnight confinement 2011 under Orthopedic spine service for lumbar disc herniation status post surgery. Unremarkable postop course. Patient has had chronic neck pain for about 25 years following a football injury. Patient noted progressive worsening of neck pain over the last few days after shoveling snow at home. Some radiation to the right arm. No weakness/numbness/incontinence symptoms. No fever, no chills. No chest pain, no SOB. Intractable discomfort at the ER. Medical History as above Surgical History : Back surgery, vasectomy, hernia repair, foot surgery, hip surgery Family History : Blood clots, asthma, skin cancer, anxiety disorder, heart disease Personal/Social history : Past tobacco abuse, occasional EtOH intake, [employer] business Admission Exam Per Admitting Provider Physical Exam: GENERAL: Comfortable, pleasant, obese, no respiratory distress SKIN: Normal color, warm HEENT: [place] palpebral conjunctivae, no ptosis, dry buccal mucosa NECK : Limited neck motion, right cervical tenderness CHEST : CTA, no tenderness HEART : RRR, no obvious murmurs ABDOMEN: Some distention, nontender EXTREMITIES : No LE swelling/tenderness, no other conspicuous deformities noted NEUROLOGIC : Coherent, no facial asymmetry, no other gross focality Principal Diagnosis s/p ACDF Discharge Exam Sitting on a chair without any acute distress Constitutional well developed, well nourished, + ill appearing and + obese ENMT external ear and nose normal, oropharynx normal Neck trachea midline, no thyromegaly Respiratory no respiratory distress Auscultation: lungs clear to auscultation bilaterally Cardiovascular Rate/Rhythm: regular rate and regular rhythm; not tachycardic Heart Sounds: normal S1 and normal S2; no murmur Extremities: no edema Gastrointestinal (Abdomen) Inspection/Auscultation: normal bowel sounds; abdomen not distended Percussion/Palpation: abdomen soft; abdomen nontender Neurologic normal touch/pain/proprioception and moves all extremities; no focal motor deficits Lymphatic no cervical or axillary lymphadenopathy Discharge Data Allergies Allergy/AdvReac Type Severity Reaction Status Date / Time JOSE FRANCISCO Inhibitors Allergy Intermediate COUGH Verified 10/12/24 13:55 lisinopril Allergy Intermediate RESPIRATORY Unverified 10/12/24 13:55 PROBLEMS, COUGH cat dander Allergy Unknown watering Verified 10/12/24 13:55 eyes Procedures Performed Operation Date: 12/22/24 07:30 Actual Procedures p C4-C5, C5-C6 Anterior Cervical Disectomy and Fusion, Spinal Cord Monitoring(Not Applicable) - Alonzo Peterson MD Ordered Studies 12/18/24 00:48 MRI Cervical [MR cervical spine wo con] Stat 12/22/24 07:30 FL cervical 2-3V Routine Hospital Course (1) Cervical radicular pain: Plan 44-year-old male with PMH of HTN, HLD, GERD, mild CAMILO, heterozygous factor V Leiden abnormality, prediabetes, anxiety disorder, past tobacco abuse with a history of chronic neck pain for about 25 years following a football injury presented this time with progressive worsening of neck pain over the last few days 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 He denies any fever/chills/bowel and bladder incontinence. He is being managed for the following: Cervical radiculopathy Patient presents with increasing neck pain associated with RUE pain. See above. C-spine MRI: Multilevel cervical disc bulge/osteophyte complexes with foraminal and spinal canal stenosis, more evident at C5-C6 disc. Straightening of cervical spine. Continue with steroid, opioids pain medication, Lyrica. Orthospine on board, appreciate recommendation. Avoid NSAIDs. Plan for sx cain, npo midnight. Status post C4-C5, C5-C6 anterior cervical discectomy and fusion He denies any significant neck pain following the procedure and does not have any neurological symptoms involving the extremities Pain is reasonably controlled He remains otherwise medically stable Denies any significant symptoms and will be discharged home this afternoon Corneal abrasion Following scratching his eyes following anesthesia Has been getting NSAIDs drop for pain and also started on erythromycin ointment to prevent infection Denies any significant pain in the eyes and will finish the antibiotic as advised Hypokalemia likely secondary to diuretic Rx , c/w home hctz and monitor closely. Monitor and replete electrolytes. Potassium was replaced Other chronic medical conditions: Continue with/resume home meds as and when able. hypertension, stable heterozygous factor V Leiden abnormality, significant family history without personal history of blood clots as per patient account. Heme evaled, appreciate recs. prediabetes, hemoglobin A1c of 5.8 in 2022 . a1c this admission 5.3 past tobacco abuse DVT prophylaxis. SCDs re: possible procedure Full code Text document was generated using [employer] voice recognition software. It may contain grammatical or spelling errors. Kindly contact undersigned for clarification of any documentation item in question. Total Time Total Time Spent Total Time Spent (In Minutes): 35 minutes Discharge Plan Discharge Items Patient Disposition: Home - Self-Care Reason For Visit: NECK PAIN Discharge Diagnosis: s/p ACDF Condition on Discharge: Fair Activity: Per Instructions section Activity Comment: no overhead lifting, neck motion as tolerated, no extremes Lifting: No more than 5 pounds Bathing Comment: May shower after 72 hours Weightbearing: Full weightbearing Non-emergency contact: Surgeon Call non-emergency contact if: your pain is worsening, your temperature is above 101, your wound has increased redness and your wound has increased drainage Follow-up/Referrals: Jorge Luis Dowd MD [Primary Care Provider] - (Date & Time 12/31/2024 11:00 AM Provider: Jorge Luis Dowd MD [facility] ) Diet: Regular Diet Texture: Easy to Chew Addtl Attending Provider Instructions: Do not take any NSAIDs (ibuprofen, naproxen, etc) for two months. Change dressing every 24 hours starting post op day 2, dry gauze is all that is needed. Once there is no drainage on dressing leave open to air and may shower normally. Do not scrub incision, Steri strips will fall off, if still on after 1 week may remove them. Instructions for FUSION Spine Surgery DO NOT TAKE ANY ANTI-INFLAMMATORY MEDICATIONS (MOTRIN, ALEVE, MOBIC, ETC.) IF YOU HAVE UNDERGONE A LUMBAR, THORACIC, OR CERVICAL FUSION DO NOT TAKE ANY HERBAL SUPPLEMENTS MEDICATIONS: You will be given prescriptions for the following: Oxycodone, Percocet or Hydrocodone - For breakthrough pain. Cyclobenzaprine (Flexeril), Valium (Diazepam), or Methocarbamol (Robaxin) For muscle spasms and back pain. Take these medications as needed. They will help the most during your recovery time. Senna-s and Miralax Senna-S twice daily, 17g packet of Miralax with water once daily while taking narcotics. These medications prevent constipation caused by the pain medications. Ondansetron (Zofran) For nausea. Cephalexin (Keflex) or Sulfamethoxazole/trimethoprim (Bactrim). Antibiotic. You are given IV antibiotics while in the hospital; you may or may not be given a prescription for home; this will be decided after surgery. Your pre-surgery prescription medications With the exception of anti- inflammatory medications, blood thinners (Coumadin, Plavix, Eliquis, Pradaxa, etc.), or narcotic pain medications, you may resume your home medications. For the above medications, you will be given specific instructions; you may resume blood thinners 3-4 days after surgery. ACTIVITIES: Walking Walking is mandatory. You need to walk at least once every hour while awake. Walking will help prevent blood clots in your legs and help prevent spasms in your back. Bending/twisting Limit bending at the waist, limit twisting and turning. You will be taught to "log roll" to get out of bed. Avoid athletic activities until further notice. Lifting Do NOT lift more than 5 lbs until further notice. Driving You may drive when you are no longer taking narcotic pain medications, can safely operate the brake/gas/clutch pedals, and can move your head/neck for visibility. Tobacco All tobacco products are strictly prohibited after surgery. Any use will dramatically increase your risk of complications. This includes vapor cigarettes, marijuana, nicotine patches and gums. Bracing/Cervical Collar There is no brace required for thoracic or lumbar surgery. If you have had a single level cervical fusion, you will be given a soft collar for comfort. Multiple level cervical fusions will receive a hard collar to be worn at all times, except for showering and hygiene, until follow up in clinic. Surgical Dressing Initial operative dressing is to stay on for 2 days; you may change it if it becomes saturated. From then on, change the dressing daily with dry gauze and paper tape. Continue to change dressing until there is no discharge. Once there is no discharge on the dressing, you may leave the incision open to air but make sure to keep it out of the sun. For supplies, stop by any local pharmacy. Any type of gauze dressing is acceptable. Do not put any ointments on the wound. Showering You may shower 48 hours after your surgery. Cover the incision with Saran Wrap and tape the edges to prevent water from contacting the incision. If water contacts the incision, pat dry. No baths or submerging the incision until seen in the clinic at follow up appointment. Next Appointment: You will need to schedule an appointment to see Dr. Peterson about 2 weeks after surgery. To schedule, please call [phone]. QUESTIONS Please contact the office with questions or concerns: [phone] If outside normal business hours, you will be connected with the on-call physician. Addtl Wafer Polisher Provider Instructions: Please take the Praluent maintain eyedrops as advised Please take precautions to avoid falls Try to use less of narcotic pain medications to avoid confusion constipation and addiction Please keep appointments with the healthcare providers Pending Studies at Discharge: No Stand-Alone Forms: My [facility], Pain - Opioid Pain Management, Smoking Cessation Medications and DC Order Prescriptions: New oxycodone-acetaminophen [Percocet] 5-325 mg Tablet 1 tab PO Q4H PRN (Reason: pain) Qty: 42 0RF tizanidine 4 mg Tablet 4 mg PO TID PRN (Reason: muscle spasticity) Qty: 90 0RF pregabalin [Lyrica] 75 mg Capsule 75 mg PO BID Qty: 60 0RF Continued losartan-hydrochlorothiazide 100-25 mg tablet 1 tab PO DAILY Qty: 30 2RF tirzepatide (weight loss) 12.5 mg/0.5 mL pen injector 12.5 mg subcut Q7D Qty: 2 2RF Discharge Orders: Discharge Order (Routine); Ordered 12/23/24 Ordered By: Ronni Holden/Other Patient Handouts: DVT Post Op Prevention Admission Data Admit Date/Time: 12/19/24 15:12 Attending Provider: Shama Ferguson Admit Provider: Yovany Jacome Primary Care Provider: Jorge Luis Dowd Other Providers: Jennifer Lr Other Interventions: Discharge Summary Assessment (RN) Last Done: 12/23/24 13:44
== END 2024-12-23 14:48 | disposition home or self-care (01) | DRG 29 ==
LOC: 2W 23:36 → ED 23:36 → 2W 12-18 05:27 → 3E 12-18 16:46 → SUATTDRO 12-19 15:12